=== PATIENT | male | born 1975 | race Caucasian/White ===

== ENCOUNTER 2017-04-24 12:20 | Emergency (ER) | payer BC, OTHER ==
[~2017-04-24] VITALS: Ht 177.8 cm; Wt 97.1 kg
[~2017-04-24 12:20] MED LIST: BUSP-8 PO; ZNTT/150 PO
[2017-04-24 12:29] VITALS: TEMP 36.8; Ht 177.8 cm; Wt 97.1 kg
[2017-04-24 13:05] LABS: HEMATOCRIT 48.2 % (42-52); MEAN CELL VOLUME 81.6 fL (80-100); MEAN CORPUSCULAR HEMOGLOBIN 29.1 pg (25-34); MEAN CORPUSCULAR HGB CONC 35.7 g/dl (32-36); MEAN PLATELET VOLUME 10.4 fL (7.4-10.4); PLATELET COUNT 247 K/uL (130-400); RED BLOOD COUNT 5.91 M/uL (4.7-6.1); WHITE BLOOD COUNT 7.01 K/uL (4.8-10.8)
[2017-04-24] MEDS ORDERED: OMEP20CA9 PO (13:06)
[2017-04-24] MEDS ORDERED: ATV5X PO (13:06)
--- NOTE | 2017-04-24 13:13 | DIAGNOSTIC IMAGING REPORT ---
CHEST ONE VIEW PORTABLE CLINICAL HISTORY: htn dyspnea COMPARISON STUDY: 11/03/2015 FINDINGS: The bones soft tissues and hemidiaphragms are normal. The cardiomediastinal silhouette is normal. The lungs are clear. The pulmonary vasculature is normal. IMPRESSION: Negative chest. The above report was generated using voice recognition software. It may contain grammatical, syntax or spelling errors. Electronically signed by: Ernie Hedrick M.D. 04/24/2017 1:12 PM Dictated Date/Time: 04/24/2017 1:12 PM
[2017-04-24 13:18] LABS: BUN/CREATININE RATIO 14.9 (10-20); CALCIUM 9.4 mg/dl (8.5-10.1); CREATININE 1.2 mg/dl (0.60-1.40); POTASSIUM 3.9 mmol/L (3.5-5.1)
[2017-04-24 13:21] LABS: ALB/GLOB RATIO 1.2 (0.9-2)
[2017-04-24] MEDS ORDERED: LIDOCAINE HCL 2% VISC SOLN 20 ML UDC ONE (13:35)
[2017-04-24] MEDS ORDERED: ALUMINUM/MAGNESIUM SUSP 30 ML UDC ONE (13:35)
[2017-04-24] MEDS ORDERED: LOSARTAN POTASSIUM 25 MG TAB PO STA (13:43)
[2017-04-24] MEDS ORDERED: NURSING VERBAL MED ORDER ONE (13:45)
--- NOTE | 2017-04-24 14:21 | DIAGNOSTIC IMAGING REPORT ---
HEAD WITHOUT CONTRAST (CT) CT DOSE: 537.48 mGy.cm HISTORY: Mental status change ROTH eval for bleed TECHNIQUE: Multiaxial CT images of the head were performed without the use of intravenous contrast. Comparison: None. Findings: The paranasal sinuses and mastoid air cells are clear. The calvarium and skull base are intact. The ventricles and sulci are within normal limits. There is no mass, hematoma, midline shift, or acute infarct. Impression: No acute intracranial abnormality. The above report was generated using voice recognition software. It may contain grammatical, syntax or spelling errors. Electronically signed by: Ernie Hedrick M.D. 04/24/2017 2:20 PM Dictated Date/Time: 04/24/2017 2:19 PM
[2017-04-24] MEDS ORDERED: LOSA1TAB PO (14:32)
[2017-04-24 14:48] VITALS: BP 150/102; PULSE 72; O2SAT 97
--- NOTE | 2017-04-24 17:11 | EMERGENCY ROOM VISIT NOTE ---
History Report prepared by Isidro: Dorothy Avalos Under the Supervision of: Dr. Scooter Tavarez M.D. First contact with patient: 13:36 Chief Complaint: HYPERTENSION Stated Complaint: HIGH BLOOD PRESSURE,HEADACHES History of Present Illness The patient is a 41 year old male who presents to the Emergency Room with complaints of persistent hypertension over the past week. The patient states that every time he goes to the doctor he is found to be hypertensive. He states that he was in to see his PCP this past week and was instructed to buy a blood pressure cuff and monitor it at home. The patient states that over the past several days he has found that his blood pressure is persistently elevated. He additionally associates a headache that is localized to his temples. The patient states that today he was preparing to go to camp for a week and decided to go to [facility] for an evaluation. He states that he was instructed to come to the emergency department for further evaluation. The patient denies any chest pain, vomiting, numbness, or weakness. Source of History: patient Onset: past week Position: other (global) Quality: other (hypertension) Timing: other (persistent) Associated Symptoms: + headache, No chest pain, No vomiting, No weakness, No numbness Review of Systems See HPI for pertinent positives & negatives. A total of 10 systems reviewed and were otherwise negative. Past Medical & Surgical Medical Problems: (1) Anxiety state, unspecified (2) Chronic tonsillitis and adenoiditis Family History FH: Parkinson's disease FH: lupus Social History Smoking Status: Never Smoker Alcohol Use: occasionally Marital Status: Housing Status: lives with family Occupation Status: employed Current/Historical Medications Scheduled Losartan Potassium (Cozaar), 1 TAB PO DAILY Omeprazole (Prilosec), 20 MG PO BID Scheduled PRN Lorazepam (Lorazepam), 0.5 MG PO TID PRN for Anxiety Allergies Coded Allergies: No Known Allergies (Unverified , 04/24/17) Physical Exam Vital Signs Date Time Temp Pulse Resp B/P (MAP) Pulse Ox O2 Delivery O2 Flow Rate FiO2 04/24/17 14:48 72 18 150/102 97 Room Air 04/24/17 13:38 72 18 160/103 97 Room Air 04/24/17 13:15 70 04/24/17 12:29 36.8 86 20 164/112 100 Room Air Physical Exam Constitutional: Vital signs reviewed. Eyes: Pupils are equal round reactive to light. Conjunctiva are noninjected. ENT: Pharynx is clear without erythema or exudate. Mucous membranes are moist. Neck supple without meningeal signs. Respiratory: Clear to auscultation bilaterally. Breath sounds are equal bilaterally. Cardiovascular: Regular rate and rhythm. No rubs or gallops. GI: Soft, nondistended and nontender. Bowel sounds are present. Musculoskeletal: No peripheral edema. No lower extremity tenderness. Integumentary: No cyanosis. Neurological: The patient is awake and alert. Cranial nerves II-XII are intact. Motor is 5 out of 5 all extremities. Sensation is intact to light touch all extremities. Normal speech. No pronator drift. Psychiatric: Normal affect. Medical Decision & Procedures ER Provider Diagnostic Interpretation: Radiology results as stated below per my review and the radiologist's interpretation: CHEST ONE VIEW PORTABLE CLINICAL HISTORY: htn dyspnea COMPARISON STUDY: 11/03/2015 FINDINGS: The bones soft tissues and hemidiaphragms are normal. The cardiomediastinal silhouette is normal. The lungs are clear. The pulmonary vasculature is normal. IMPRESSION: Negative chest. The above report was generated using voice recognition software. It may contain grammatical, syntax or spelling errors. Electronically signed by: Ernie Hedrick M.D. 04/24/2017 1:12 PM Dictated Date/Time: 04/24/2017 1:12 PM HEAD WITHOUT CONTRAST (CT) CT DOSE: 537.48 mGy.cm HISTORY: Mental status change ROTH eval for bleed TECHNIQUE: Multiaxial CT images of the head were performed without the use of intravenous contrast. Comparison: None. Findings: The paranasal sinuses and mastoid air cells are clear. The calvarium and skull base are intact. The ventricles and sulci are within normal limits. There is no mass, hematoma, midline shift, or acute infarct. Impression: No acute intracranial abnormality. The above report was generated using voice recognition software. It may contain grammatical, syntax or spelling errors. Electronically signed by: Ernie Hedrick M.D. 04/24/2017 2:20 PM Dictated Date/Time: 04/24/2017 2:19 PM Laboratory Results 04/24/17 12:55 04/24/17 12:55 Test 04/24/17 12:55 Red Blood Count 5.91 M/uL (4.7-6.1) Mean Corpuscular Volume 81.6 fL (80-100) Mean Corpuscular Hemoglobin 29.1 pg (25-34) Mean Corpuscular Hemoglobin Concent 35.7 g/dl (32-36) RDW Standard Deviation 33.3 fL (36.4-46.3) RDW Coefficient of Variation 11.3 % (11.5-14.5) Mean Platelet Volume 10.4 fL (7.4-10.4) Anion Gap 8.0 mmol/L (3-11) Est Creatinine Clear Calc Drug Dose 95.6 ml/min Estimated GFR () 87.1 Estimated GFR (Non- 75.2 BUN/Creatinine Ratio 14.9 (10-20) Calcium Level 9.4 mg/dl (8.5-10.1) Total Bilirubin 1.6 mg/dl (0.2-1) Aspartate Amino Transf (AST/SGOT) 20 U/L (15-37) Alanine Aminotransferase (ALT/SGPT) 31 U/L (12-78) Alkaline Phosphatase 49 U/L (45-117) Troponin I < 0.015 ng/ml (0-0.045) Total Protein 8.4 gm/dl (6.4-8.2) Albumin 4.6 gm/dl (3.4-5.0) Globulin 3.8 gm/dl (2.5-4.0) Albumin/Globulin Ratio 1.2 (0.9-2) Laboratory results as reviewed by me. Medications Administered Medications (Trade) Dose Ordered Sig/Chris Route Start Time Stop Time Status Last Admin Dose Admin Al Hydroxide/Mg Hydroxide (Maalox Susp) 30 ml STK-MED ONCE .ROUTE 04/24/17 13:35 04/24/17 13:36 DC 04/24/17 13:35 30 ML Lidocaine HCl (Viscous Lidocaine 2% Soln) 20 ml STK-MED ONCE .ROUTE 04/24/17 13:35 04/24/17 13:36 DC 04/24/17 13:35 20 ML Losartan Potassium (coZAAR TAB) 25 mg ONE STAT PO 04/24/17 13:43 04/24/17 13:48 DC 04/24/17 14:16 25 MG ECG Indication: other (hypertension) Rate (beats per minute): 78 Rhythm: normal sinus Findings: no acute ischemic change, no ectopy ED Course 1335: Ordered Lidocaine HCl 20 ml .route, Maalox Susp 30 ml .route. 1338: The patient was evaluated in room A9B. A complete history and physical exam was performed. 1343: Ordered Cozaar Tab 25 mg PO. 1428: I reevaluated the patient and he is doing well. I discussed the test results with him and I discussed the treatment plan. He verbalized complete understanding and agreement. He is ready to go home. Medical Decision This is a 41-year-old male who presents with elevated blood pressures and hypertension. Differential diagnosis includes whitecoat hypertension, essential hypertension, anxiety, migraine headache, intracranial hemorrhage. I did perform a limited focused review of portions of the patient's old chart on the electronic medical record. The patient has had no recent pertinent visits to this hospital. Medication Reconciliation: I attest that I have personally reviewed the patient' s current medication list. Blood Pressure Screening: Patient was found to have an elevated blood pressure and was referred to their primary doctor for recheck and further treatment. I did evaluate the patient as noted above. IV access was established. The patient was placed on a continuous oncology social work. I did personally review the patient's 12-lead EKG and chest x-ray as described above. I did review the patient's blood work as noted in the electronic medical record. I did order a CT of the head. I did review the images myself as well as the radiology report as described above. There is no evidence of intracranial hemorrhage. I did treat the patient with losartan. He did wish to initiate therapy and so he was discharged with a prescription for losartan 25 mg daily. He follow closely with his doctor for further evaluation. I did discuss side effects of the medication with him. Impression Primary Impression: Hypertension Additional Impression: Headache Scribe Attestation The scribe's documentation has been prepared under my direct and personally reviewed by me in its entirety. I confirm that the note above accurately reflects all work, treatment, procedures, and medical decision making performed by me. Departure Information Dispostion Home / Self-Care Prescriptions Losartan Potassium (COZAAR) 25 Mg Tab 1 TAB PO DAILY for 30 Days, #30 TAB 5 Refills Prov: Scooter Tavarez M.D. 04/24/17 Referrals Hardeep Vasquez M.D. (PCP) Forms HOME CARE DOCUMENTATION FORM, IMPORTANT VISIT INFORMATION, WORK / SCHOOL INSTRUCTIONS Patient Instructions ED Hypertension [place], My [facility] Additional Instructions You have been examined and treated today on an emergency basis only. This is not a substitute for, or an effort to provide, complete comprehensive medical care. It is impossible to recognize and treat all injuries or illnesses in a single emergency department visit. It is therefore important that you follow up closely with your physician. Call as soon as possible for an appointment. Return for worsening symptoms or if you develop fever, vomiting, chest pain, shortness of breath, numbness or weakness in your extremities, difficulty with your speech or walking, or any other concerning symptoms. Problem Qualifiers Primary Impression: Hypertension Hypertension type: unspecified Qualified Codes: I10 - Essential (primary) hypertension Additional Impression: Headache Headache type: unspecified Headache chronicity pattern: acute headache Intractability: not intractable Qualified Codes: R51 - Headache
[2017-05-17] MEDS ORDERED: RANI75TA19 PO (14:03)
[2017-05-17] MEDS ORDERED: LOSA25TA18 PO (14:03)
[2017-05-17] MEDS ORDERED: MULT1CHW18 PO (14:04)
== END 2017-04-24 14:59 | disposition home or self-care (01) ==
LOC: C.EDB 12:22 → C.EDA 14:59
DX: I10 Essential (primary) hypertension (principal); R51 Headache; F41.9 Anxiety disorder, unspecified; Z79.899 Other long term (current) drug therapy

== ENCOUNTER → 2017-05-03 | Outpatient (CLI) | payer BC ==
[~2017-05-03] MED LIST changes: +ATV5X PO; -BUSP-8 PO; +LOSA1TAB PO; +LOSA25TA18 PO; +MULT1CHW18 PO; +OMEP20CA9 PO; +RANI75TA19 PO; -ZNTT/150 PO
[2017-05-03 17:42] LABS: BLOOD UREA NITROGEN 18 mg/dl (7-18); BUN/CREATININE RATIO 18.9 (10-20); CALCIUM 9.1 mg/dl (8.5-10.1); CARBON DIOXIDE 27 mmol/L (21-32); CHLORIDE 106 mmol/L (98-107); CREATININE 0.95 mg/dl (0.60-1.40); GLUCOSE 79 mg/dl (70-99); POTASSIUM 3.7 mmol/L (3.5-5.1); SODIUM 140 mmol/L (136-145)
== END | disposition home or self-care (01) ==
LOC: C.LABBFT 12:12
PROVIDERS: ATTEND Physician Assistant Medical
DX: I10 Essential (primary) hypertension (principal)

== ENCOUNTER → 2017-05-18 | Day surgery (SDC) | payer BC ==
[2017-05-17 14:04] VITALS: BMI 29.0
[~2017-05-18] VITALS: Ht 177.8 cm; Wt 93.2 kg
[~2017-05-18] MED LIST changes: +FENTANYL CITRATE INJ 50 MCG/1 ML 2 ML VIAL ONE; +LIDOCAINE HCL 2% 2 ML VIAL (20MG/ML) ONE; -LOSA1TAB PO; +MIDAZOLAM HCL 1 MG/ML 2ML VIAL ONE; +PROPOFOL IV EMULSION 10 MG/ML 20 ML VIAL IV ONE; +SODIUM CHLORIDE 0.9% 500ML 500 ML IV ONE
[2017-05-18 09:52] VITALS: Ht 177.8 cm; Wt 93.2 kg
[2017-05-18 09:54] VITALS: TEMP 37
--- NOTE | 2017-05-18 10:03 | Endo History and Physical ---
History & Physical Date of Service: May 18, 2017. Chief Complaint: GERD WITHOUT ESOPHAGITIS Referring Physician: DR. SHARAN REEDER History of Present Illness 41 yo CM who presents for EGD secondary to GERD. Past Surgical History Hx Cardiac Surgery: No Hx Internal Defibrillator: No Hx Pacemaker: No Hx Abdominal Surgery: No Hx of Implantable Prosthesis: No Hx Post-Op Nausea and Vomiting: No Hx Cancer Surgery: No Hx Thoracic Surgery: No Hx Orthopedic: No Hx Urinary Tract Surgery: No Family History None Social History Smoking Status: Former Smoker Hx Substance Use: Yes (HX MARIJUANA AND COCAINE) Hx Alcohol Use: Yes (12 PACK/WEEK) Allergies Coded Allergies: No Known Allergies (Verified , 05/18/17) Current Medications Reported Home Medications Medications Dose Route/Sig Max Daily Dose Days Date Category Multivitamin Gummies Adul (Multiple Vitamins W/ Minerals) 1 Chw Chw 1 Tab PO BID 05/17/17 Reported Ranitidine Hcl 75 Mg Tab 1 Tab PO DAILY PRN 05/17/17 Reported Cozaar (Losartan Potassium) 25 Mg Tab 25 Mg PO QAM 05/17/17 Reported Lorazepam 0.5 Mg Tab 0.5 Mg PO TID PRN 04/24/17 Reported Prilosec (Omeprazole) 20 Mg Cap 20 Mg PO QPM 04/24/17 Reported Vital Signs Weight (Kilograms): 93.18 Height (Feet): 5 Height (Inches): 10 Date Time Temp Pulse Resp B/P (MAP) Pulse Ox O2 Delivery O2 Flow Rate FiO2 05/18/17 09:54 37.0 77 16 138/86 (103) 98 Room Air Physical Exam General Appearance: WD/WN, no apparent distress Respiratory/Chest: Auscultation: breath sounds normal Cardiovascular: Heart Auscultation: RRR Abdomen: Bowel Sounds: normal Inspection & Palpation: soft, non-distended, no tenderness, guarding & rebound Assessment and Plan Assessment: 41 yo CM who presents for EGD secondary to GERD. Plan: Proceed with EGD.
--- NOTE | 2017-05-18 10:35 | GI REPORT ---
Procedure Date: 05/18/2017 10:04 AM Procedure: Upper GI endoscopy Indications: Gastro-esophageal reflux disease Medicines: Monitored Anesthesia Care Complications: No immediate complications. Estimated Blood Loss: Estimated blood loss: none. Procedure: Pre-Anesthesia Assessment: - Prior to the procedure, a History and Physical was performed, and patient medications and allergies were reviewed. The patient's tolerance of previous anesthesia was also reviewed. The risks and benefits of the procedure and the sedation options and risks were discussed with the patient. All questions were answered, and informed consent was obtained. Prior Anticoagulants: The patient has taken no previous anticoagulant or antiplatelet agents. ASA Grade Assessment: II - A patient with mild systemic disease. After reviewing the risks and benefits, the patient was deemed in satisfactory condition to undergo the procedure. After obtaining informed consent, the endoscope was passed under direct vision. Throughout the procedure, the patient's blood pressure, pulse, and oxygen saturations were monitored continuously. The scope was introduced through the mouth, and advanced to the second part of duodenum. The upper GI endoscopy was accomplished without difficulty. The patient tolerated the procedure well. Findings: The esophagus was normal. A small hiatus hernia was present. Localized mild inflammation characterized by erythema was found in the gastric antrum. Biopsies were taken with a cold forceps for histology. The examined duodenum was normal. Impression: - Normal esophagus. - Small hiatus hernia. - Gastritis. Biopsied. - Normal examined duodenum. Recommendation: - Resume previous diet. - Continue present medications. - Await pathology results. - Return to primary care physician as previously scheduled. Lee Vallejo DO 05/18/2017 10:35:32 AM This report has been signed electronically. Note Initiated On: 05/18/2017 10:04 AM I attest to the content of the Intraoperative Record and orders documented therein, exceptions below
--- NOTE | 2017-05-18 10:41 | Discharge Instructions ---
Endoscopy Patient Instructions Date / Procedure(s) Performed May 18, 2017. EGD Allergy Information Coded Allergies: No Known Allergies (Verified , 05/18/17) Discharge Date / Findings May 18, 2017. Gastritis Hiatal hernia Medication Instructions OK to resume all medications today as prescribed Reported Home Medications Medications Dose Route/Sig Max Daily Dose Days Date Category Multivitamin Gummies Adul (Multiple Vitamins W/ Minerals) 1 Chw Chw 1 Tab PO BID 05/17/17 Reported Ranitidine Hcl 75 Mg Tab 1 Tab PO DAILY PRN 05/17/17 Reported Cozaar (Losartan Potassium) 25 Mg Tab 25 Mg PO QAM 05/17/17 Reported Lorazepam 0.5 Mg Tab 0.5 Mg PO TID PRN 04/24/17 Reported Prilosec (Omeprazole) 20 Mg Cap 20 Mg PO QPM 04/24/17 Reported Provider Instructions Activity Restrictions - No exercising or heavy lifting for 24 hours. - Do not drink alcohol the day of the procedure. - Do not drive a car or operate machinery until the day after the procedure. - Do not make any important decisions or sign important papers in 24 hours after the procedure. Following Day: - Return to full activity which may include returning to work/school. Diet Start your diet with liquids and light foods (jello, soup, juice, toast). Then eat your usual diet if not nauseated. Treatment For Common After Affects For mild abdominal pain, bloating, or excessive gas: - Rest - Eat lightly - Lie on right side Follow-Up Information Follow-up with DR. SHARAN REEDER as scheduled Anesthesia Information What You Should Know You have had a procedure that required some medicine to reduce anxiety and discomfort. This treatment is called moderate sedation. After receiving the treatment, you may be sleepy, but you will be able to breathe on your own. The effects of the treatment may last for several hours. Follow these instructions along with Activity/Diet recommendations noted above: * Do NOT do anything where dizziness or clumsiness would be dangerous. * Rest quietly at home today, then you can be up and about tomorrow. * Have a responsible person stay with you the rest of today. * You may have had an I.V. today. If so, you may take the dressing off later today. Recommendations Call your doctor if: * Trouble breathing * Continuous vomiting for more than 24 hours * Temperature above 101 degrees * Severe abdominal pain or bloating * Pain not relieved by pain medicine ordered * There is increased drainage or redness from any incision * A large amount of rectal bleeding greater than 2-3 tablespoons. (If you had a polyp/s removed or have hemorrhoids, a small amount of blood - from the rectum is to be expected.) * You have any unanswered questions or concerns. IN THE EVENT OF A SERIOUS EMERGENCY, GO TO THE NEAREST EMERGENCY ROOM Your discharge instructions were prepared by provider Lee Vallejo. Patient Instructions Signature Page Charu Tse Patient (or Guardian) Signature/Date: I have read and understand the instructions given to me by my caregivers. Caregiver/RN/Doctor Signature/Date: The above-named patient and/or guardian has received patient instructions on this date. + Original Patient Signature Page (only) stays with chart. Please make copy for patient.
[2017-05-18 10:47] VITALS: BP 110/66; PULSE 73; O2SAT 96
--- NOTE | 2017-05-18 10:52 | Anesthesiology Progress Note ---
Anesthesia Post Op Note Date & Time May 18, 2017 at 10:52 Vital Signs Pain Intensity: 0 Vital Signs Past 12 Hours Date Time Temp Pulse Resp B/P (MAP) Pulse Ox O2 Delivery O2 Flow Rate FiO2 05/18/17 10:47 73 16 110/66 (81) 96 Room Air 05/18/17 10:35 74 16 113/64 (80) 96 Room Air 05/18/17 10:22 67 16 100/47 (64) 95 Room Air 05/18/17 09:54 37.0 77 16 138/86 (103) 98 Room Air Notes Mental Status: alert / awake / arousable, participated in evaluation Pt Amnestic to Procedure: Yes Nausea / Vomiting: adequately controlled Pain: adequately controlled Airway Patency, RR, SpO2: stable & adequate BP & HR: stable & adequate Hydration State: stable & adequate Anesthetic Complications: no major complications apparent
== END | disposition home or self-care (01) ==
LOC: C.GI 09:34
PROVIDERS: ATTEND Internal Medicine
DX: K44.9 Diaphragmatic hernia without obstruction or gangrene (principal); K29.70 Gastritis, unspecified, without bleeding; K21.9 Gastro-esophageal reflux disease without esophagitis; Z87.891 Personal history of nicotine dependence; Z79.899 Other long term (current) drug therapy

== ENCOUNTER → 2017-05-30 | Outpatient (CLI) | payer SELFPAY ==
[~2017-05-30] MED LIST changes: -FENTANYL CITRATE INJ 50 MCG/1 ML 2 ML VIAL ONE; -LIDOCAINE HCL 2% 2 ML VIAL (20MG/ML) ONE; -MIDAZOLAM HCL 1 MG/ML 2ML VIAL ONE; -PROPOFOL IV EMULSION 10 MG/ML 20 ML VIAL IV ONE; -SODIUM CHLORIDE 0.9% 500ML 500 ML IV ONE
== END | disposition home or self-care (01) ==
LOC: C.LAB 07:16
PROVIDERS: ATTEND Nutritionist

== ENCOUNTER 2017-08-04 21:28 | Emergency (ER) | payer BC ==
[~2017-08-04] VITALS: Ht 177.8 cm; Wt 88.2 kg
[2017-08-04 21:34] VITALS: TEMP 36.9; Ht 177.8 cm; Wt 88.2 kg
[2017-08-04] MEDS ORDERED: [UNRECOGNIZED DRUG - OTHER] PO (22:00)
[2017-08-04] MEDS ORDERED: HYDR1POW PO (22:00)
[2017-08-04] MEDS ORDERED: GLYCINE PO (22:00)
[2017-08-04 22:47] VITALS: O2SAT 99
--- NOTE | 2017-08-04 23:02 | DIAGNOSTIC IMAGING REPORT ---
CHEST ONE VIEW PORTABLE CLINICAL HISTORY: Difficult chest pain, headache, palpitations. COMPARISON STUDY: 04/24/2017 FINDINGS: The cardiac and mediastinal contours are normal. There is no evidence of focal pulmonary consolidation. There is no evidence of failure. No pleural effusions are visualized.[ IMPRESSION: No active disease in the chest. Electronically signed by: Jd Garcia M.D. 08/04/2017 11:01 PM Dictated Date/Time: 08/04/2017 11:01 PM
[2017-08-04 23:15] LABS: BASO % 0.7 %; BASO ABS # 0.05 K/uL (0-0.2); COMPLETE YES; EOS % 1.9 %; HEMATOCRIT 41.5 % (42-52); IG% 0.3 %; LYMPH % 43.2 %; LYMPH ABS # 3.19 K/uL (1.2-3.4); MEAN CELL VOLUME 82.7 fL (80-100); MEAN CORPUSCULAR HEMOGLOBIN 30.3 pg (25-34); MEAN CORPUSCULAR HGB CONC 36.6 g/dl (32-36); MONO % 7.9 %; PLATELET COUNT 207 K/uL (130-400); RED BLOOD COUNT 5.02 M/uL (4.7-6.1); WHITE BLOOD COUNT 7.38 K/uL (4.8-10.8)
--- NOTE | 2017-08-04 23:21 | EMERGENCY ROOM VISIT NOTE ---
History Report prepared by Isidro: Katelyn Burks Under the Supervision of: Dr. Jewel Nova M.D. 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 The patient has been having heart palpitations recently. This evening, the heart palpitations turned into an anxiety. He took some lorazepam. He is still having some palpitations. He then developed a headache. He has a history of getting headaches when his blood pressure is high. He has a history of hypertension. He denies any family history of heart problems. He is not diabetic. He does not smoke. He has been having problems with his gallbladder and is scheduled for a HIDA scan tomorrow. 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 Review of Systems See HPI for pertinent positives & negatives. A total of 10 systems reviewed and were otherwise negative. Past Medical & Surgical Medical Problems: (1) Anxiety state, unspecified (2) Chronic tonsillitis and adenoiditis Family History FH: Parkinson's disease FH: lupus Social History Smoking Status: Former Smoker Alcohol Use: occasionally Marital Status: Housing Status: lives with family Occupation Status: employed Current/Historical Medications Scheduled Hydroxytryptophan (5-Htp), 2 CAP PO HS Losartan Potassium (Cozaar), 12.5 MG PO QAM Multiple Vitamins W/ Minerals (Multivitamin Gummies Adul), 1 TAB PO BID [Dopaboost], 2 CAP PO DAILY [Glycine], 1 CAP PO DAILY Scheduled PRN Lorazepam (Lorazepam), 0.5 MG PO TID PRN for Anxiety Allergies Coded Allergies: No Known Allergies (Verified , 08/04/17) Physical Exam Vital Signs Date Time Temp Pulse Resp B/P (MAP) Pulse Ox O2 Delivery O2 Flow Rate FiO2 08/05/17 00:04 57 18 127/95 98 Room Air 08/04/17 22:47 99 Room Air 08/04/17 22:47 60 18 146/99 99 Room Air 08/04/17 22:47 99 Room Air 08/04/17 22:23 68 10/26/17 21:34 36.9 74 18 168/116 100 Room Air Physical Exam GENERAL: Patient is a healthy-appearing well-nourished male HEAD: Normocephalic atraumatic EYES: Ocular movements intact pupils equal and react to light OROPHARYNX mucous membranes are moist no exudates present no erythema or edema present NECK: Supple no nuchal rigidity CHEST: Good equal expansion LUNGS: Clear and equal to auscultation CARDIAC: Normal S1 and S2 ABDOMEN: Soft nontender no guarding BACK: No CVA tenderness EXTREMITIES: No pain upon palpation normal muscle strength in all groups no clubbing cyanosis or edema NEURO: Patient is following commands and answering questions appropriately. Alert and oriented x3 Cranial Nerves 2-12 grossly intact Medical Decision & Procedures ER Provider Diagnostic Interpretation: X-ray results as stated below per interpretation by me and the radiologist: CHEST ONE VIEW PORTABLE CLINICAL HISTORY: Difficult chest pain, headache, palpitations. COMPARISON STUDY: 04/24/2017 FINDINGS: The cardiac and mediastinal contours are normal. There is no evidence of focal pulmonary consolidation. There is no evidence of failure. No pleural effusions are visualized.[ IMPRESSION: No active disease in the chest. Electronically signed by: Jd Garcia M.D. 08/04/2017 11:01 PM Dictated Date/Time: 08/04/2017 11:01 PM Laboratory Results 08/04/17 22:45 Red Blood Count 5.02, Mean Corpuscular Volume 82.7, Mean Corpuscular Hemoglobin 30.3, Mean Corpuscular Hemoglobin Concent 36.6, Mean Platelet Volume 11.0, Neutrophils (%) (Auto) 46.0, Lymphocytes (%) (Auto) 43.2, Monocytes (%) (Auto) 7.9, Eosinophils (%) (Auto) 1.9, Basophils (%) (Auto) 0.7, Neutrophils # (Auto) 3.40, Lymphocytes # (Auto) 3.19, Monocytes # (Auto) 0.58, Eosinophils # (Auto) 0.14, Basophils # (Auto) 0.05 08/04/17 22:45 Test 08/04/17 22:45 White Blood Count 7.38 K/uL (4.8-10.8) Red Blood Count 5.02 M/uL (4.7-6.1) Hemoglobin 15.2 g/dL (14.0-18.0) Hematocrit 41.5 % (42-52) Mean Corpuscular Volume 82.7 fL (80-100) Mean Corpuscular Hemoglobin 30.3 pg (25-34) Mean Corpuscular Hemoglobin Concent 36.6 g/dl (32-36) Platelet Count 207 K/uL (130-400) Mean Platelet Volume 11.0 fL (7.4-10.4) Neutrophils (%) (Auto) 46.0 % Lymphocytes (%) (Auto) 43.2 % Monocytes (%) (Auto) 7.9 % Eosinophils (%) (Auto) 1.9 % Basophils (%) (Auto) 0.7 % Neutrophils # (Auto) 3.40 K/uL (1.4-6.5) Lymphocytes # (Auto) 3.19 K/uL (1.2-3.4) Monocytes # (Auto) 0.58 K/uL (0.11-0.59) Eosinophils # (Auto) 0.14 K/uL (0-0.5) Basophils # (Auto) 0.05 K/uL (0-0.2) RDW Standard Deviation 36.5 fL (36.4-46.3) RDW Coefficient of Variation 12.2 % (11.5-14.5) Immature Granulocyte % (Auto) 0.3 % Immature Granulocyte # (Auto) 0.02 K/uL (0.00-0.02) Anion Gap 6.0 mmol/L (3-11) Est Creatinine Clear Calc Drug Dose 124.8 ml/min Estimated GFR () 124.5 Estimated GFR (Non- 107.5 BUN/Creatinine Ratio 14.6 (10-20) Calcium Level 8.8 mg/dl (8.5-10.1) Total Bilirubin 0.6 mg/dl (0.2-1) Direct Bilirubin 0.1 mg/dl (0-0.2) Aspartate Amino Transf (AST/SGOT) 15 U/L (15-37) Alanine Aminotransferase (ALT/SGPT) 25 U/L (12-78) Alkaline Phosphatase 47 U/L (45-117) Total Creatine Kinase 188 U/L (39-308) Creatine Kinase MB 1.1 ng/ml (0.5-3.6) Creatine Kinase MB Ratio 0.6 (0-3.0) Troponin I < 0.015 ng/ml (0-0.045) Total Protein 7.5 gm/dl (6.4-8.2) Albumin 4.1 gm/dl (3.4-5.0) Lipase 130 U/L (73-393) Labs reviewed by ED physician. ECG Indication: palpitations Rate (beats per minute): 62 Rhythm: normal sinus Findings: no acute ischemic change, no ectopy ED Course 5: Past medical records reviewed. The patient was evaluated in room A3. A complete history and physical examination was performed. 2345: Upon reexamination the patient is resting comfortably. I discussed results and treatment plan with the patient. He verbalizes agreement and understanding. The patient is ready for discharge. Medical Decision Differential diagnosis: Etiologies such as premature contractions, electrolyte abnormality, cardiac dysrhythmia, thyroid dysfunction, pulmonary embolism, infection, gastrointestinal, as well as others were entertained. This is a 41-year-old male who presents emergency department complaining of palpitations. The patient has a normal EKG in the emergency department has normal CK-MB and troponin fraction. He was observed for a total of 2 hours in the emergency department in no time did the patient exhibit any palpitations. I feel he is well enough to be discharged home for follow-up with [facility] cardiology. Patient was in agreement with the treatment plan. Medication Reconcilliation Current Medication List: was personally reviewed by me Blood Pressure Screening Patient's blood pressure: Elevated blood pressure Blood pressure disposition: Referred to PCP Impression Primary Impression: Palpitations Scribe Attestation The scribe's documentation has been prepared under my direction and personally reviewed by me in its entirety. I confirm that the note above accurately reflects all work, treatment, procedures, and medical decision making performed by me. Departure Information Dispostion Home / Self-Care Referrals Lisa Walters D.O. (PCP) Arian Alberto D.O. Forms HOME CARE DOCUMENTATION FORM, IMPORTANT VISIT INFORMATION Patient Instructions ED Palpitations, My [facility] Additional Instructions Follow up with Dr Alberto's office You were found to have an elevated blood pressure today (>120 sytolic or >90 diastolic). Per medicare guidelines, you need to follow up with this blood pressure screening with your Primary Care Physician (PCP). For a new PCP call [phone]. You have been examined and treated today on an emergency basis only. This is not a substitute for, or an effort to provide, complete comprehensive medical care. It is impossible to recognize and treat all injuries or illnesses in a single emergency department visit. It is therefore important that you follow up closely with Dr Walters. Call as soon as possible for an appointment. Thank you for your time and consideration. I look forward to speaking with you again soon. Please don't hesitate to call us if you have any questions.
[2017-08-04 23:32] LABS: ALT/SGPT 25 U/L (12-78); BLOOD UREA NITROGEN 13 mg/dl (7-18); BUN/CREATININE RATIO 14.6 (10-20); CALCIUM 8.8 mg/dl (8.5-10.1); CARBON DIOXIDE 29 mmol/L (21-32); CHLORIDE 107 mmol/L (98-107); CREATININE 0.88 mg/dl (0.60-1.40); GLUCOSE 97 mg/dl (70-99); POTASSIUM 3.6 mmol/L (3.5-5.1); SODIUM 141 mmol/L (136-145)
[2017-08-04 23:37] LABS: ALKALINE PHOSPHATASE 47 U/L (45-117); AST/SGOT 15 U/L (15-37); CKMB/CK RATIO 0.6 (0-3.0)
[2017-08-05 00:04] VITALS: BP 127/95; PULSE 57; O2SAT 98
[2017-08-18] MEDS ORDERED: DIGE1CAP PO (14:48)
[2017-08-18] MEDS ORDERED: [UNRECOGNIZED DRUG - CODE] PO (14:48)
== END 2017-08-05 00:09 | disposition home or self-care (01) ==
LOC: C.EDB 21:30 → C.EDA 08-05 00:09
DX: R00.2 Palpitations (principal); F41.9 Anxiety disorder, unspecified; Z87.891 Personal history of nicotine dependence; Z79.899 Other long term (current) drug therapy

== ENCOUNTER → 2017-08-05 | Outpatient (CLI) | payer BC ==
[~2017-08-05] MED LIST changes: +DIGE1CAP PO; +GLYCINE PO; +HYDR1POW PO; -OMEP20CA9 PO; -RANI75TA19 PO; +SINCALIDE INJ 1.7 MCG in SODIUM CHLORIDE 0.9% 100ML 100 ML IV SCH; +[UNRECOGNIZED DRUG - CODE] PO; +[UNRECOGNIZED DRUG - OTHER] PO
--- NOTE | 2017-08-05 13:16 | DIAGNOSTIC IMAGING REPORT ---
HEPATOBILIARY HIDA IMAGING CLINICAL HISTORY: 41 years-old Male with RUQ PAIN. Acute right upper quadrant abdominal pain TECHNIQUE: Sequential anterior abdominal images were obtained through 60 minutes following the intravenous administration of 5.5 mCi of technetium-99m Choletec. A lateral image was also obtained. COMPARISON: None available FINDINGS: There is prompt, uniform accumulation of the tracer by the liver. There is normal filling of the intrahepatic ducts, common bile duct and normal excretion of the tracer into the duodenum. The gallbladder is not seen with certainty. Delayed 125 minute anterior, lateral and right anterior oblique images of the abdomen were obtained which demonstrates tracer throughout the bowel. 4 hour delayed images were not obtained secondary to the majority of the radiotracer excreted from the biliary tree by this time interval. IMPRESSION: 1. No scintigraphic evidence for common bile duct obstruction. 2. Gallbladder is not seen with certainty. Differential considerations would include acute or chronic cholecystitis within the appropriate clinical setting. The above report was generated using voice recognition software. It may contain grammatical, syntax or spelling errors. Electronically signed by: Thad Gale M.D. 08/05/2017 1:15 PM Dictated Date/Time: 08/05/2017 1:10 PM
== END | disposition home or self-care (01) ==
LOC: C.NUCL 09:52
PROVIDERS: ATTEND Physician Assistant
DX: R10.11 Right upper quadrant pain (principal)

== ENCOUNTER 2017-09-06 09:01 | Day surgery (SDC) | payer BC ==
[2017-08-18 14:48] VITALS: BMI 27.0
[~2017-09-06] VITALS: Ht 177.8 cm; Wt 85.5 kg
[~2017-09-06 09:01] MED LIST changes: +CEFOXITIN IV 2,000 MG in DEXTROSE 5% 50ML 50 ML IV SCH; +LACTATED RINGER'S 1000ML 1,000 ML IV SCH; -SINCALIDE INJ 1.7 MCG in SODIUM CHLORIDE 0.9% 100ML 100 ML IV SCH
[2017-09-06 09:45] VITALS: BP 131/89; PULSE 77; TEMP 36.8; O2SAT 98; Ht 177.8 cm; Wt 85.5 kg
--- NOTE | 2017-09-06 10:34 | History & Physical Bridge Note ---
H&P Re-Evaluation Bridge Note: I have examined the patient, reviewed the History & Physical and in the interval since the performance of the History & Physical I have noted the following changes of clinical significance: No changes noted
[2017-09-06] MEDS ORDERED: LIDOCAINE HCL 2% 2 ML VIAL (20MG/ML) ONE (10:36)
[2017-09-06] MEDS ORDERED: PROPOFOL IV EMULSION 10 MG/ML 20 ML VIAL IV ONE (10:36)
[2017-09-06] MEDS ORDERED: FENTANYL CITRATE INJ 50 MCG/1 ML 2 ML VIAL ONE (10:37)
[2017-09-06] MEDS ORDERED: MIDAZOLAM HCL 1 MG/ML 2ML VIAL ONE (10:37)
[2017-09-06] MEDS ORDERED: GLYCOPYRROLATE INJ 0.2 MG/ML VIAL ONE (10:37)
[2017-09-06] MEDS ORDERED: ONDANSETRON INJ 2 MG/ML 2 ML VIAL ONE (10:37)
[2017-09-06] MEDS ORDERED: NEOSTIGMINE METHYLSULFATE 5 MG/5 ML SYR ONE (10:37)
[2017-09-06] MEDS ORDERED: KETOROLAC TROMETHAMINE 30 MG/ML VIAL IV. PRN (10:45)
[2017-09-06] MEDS ORDERED: ATROPINE SULFATE 0.1 MG/ML 5ML SYR IV PRN (10:45)
[2017-09-06] MEDS ORDERED: ONDANSETRON INJ 2 MG/ML 2 ML VIAL IV PRN ×2 (10:45→13:00)
[2017-09-06] MEDS ORDERED: FENTANYL CITRATE INJ 50 MCG/1 ML 2 ML VIAL IV PRN (10:45)
[2017-09-06] MEDS ORDERED: BUPIVACAINE 0.5 % 5 MG/1 ML MPF 30ML VIAL ONE (10:54)
[2017-09-06] MEDS ORDERED: SODIUM CHLORIDE 0.9% INJ 10 ML VIAL ONE (11:13)
[2017-09-06] MEDS ORDERED: HYDROmorphone INJ 2 MG/ML SYR/VIAL ONE (11:13)
[2017-09-06] MEDS ORDERED: DEXAMETHASONE SOD INJ 4 MG/ML VIAL ONE (11:31)
[2017-09-06] MEDS ORDERED: PHENYLEPHRINE 100MCG/ML 5ML SYR ONE (11:37)
[2017-09-06] MEDS ORDERED: ROCURONIUM BROMIDE 10 MG/ML 5 ML VIAL IV ONE (11:44)
--- NOTE | 2017-09-06 12:39 | [facility] Post Operative Brief Note ---
Immediate Operative Summary Operative Date Sep 06, 2017. Pre-Operative Diagnosis chronic cholecystitis Post-Operative Diagnosis Same as preop Procedure(s) Performed Laparoscopic Cholecystectomy with Cholangiogram Surgeon Dr. Rosenthal Gluer Machine Setup Operator Surgeon(s) Srinivasan Murdock PA-C Estimated Blood Loss 9 ml Findings Window of safety obtained, cholangiogram with patent cystic duct and no evidence of common bile duct obstruction. Cystic duct and artery doubly clipped and divided. Accessory cystic artery clipped and divided. Specimens A. Gall Bladder and Contents Drains none Anesthesia GETA Complication(s) None Disposition Recovery Room / PACU
[2017-09-06] MEDS ORDERED: OXYC-57 PO (12:41)
[2017-09-06] MEDS ORDERED: SODIUM CHLORIDE 0.9% 1000ML 1,000 ML IV SCH (12:46)
--- NOTE | 2017-09-06 12:46 | [facility] Operative Report ---
Operative Report Operative Date Sep 06, 2017. Pre-Operative Diagnosis chronic cholecystitis Post-Operative Diagnosis same Procedure(s) Performed laparoscopic cholecystectomy with intraoperative cholangiogram Surgeon Dr. Rosenthal Pantry Attendant Surgeon(s) Srinivasan Murdock PA-C Estimated Blood Loss 9 ml Findings Window of safety obtained, cholangiogram with patent cystic duct and no evidence of common bile duct obstruction. Cystic duct and artery doubly clipped and divided. Accessory cystic artery clipped and divided. Specimens A. Gall Bladder and Contents Drains none Anesthesia GETA Disposition Recovery Room / PACU Indications 41-year-old male with abdominal pain and HIDA scan that showed nonfilling of the gallbladder, plan for laparoscopic cholecystectomy with intraoperative cholangiogram. The risks of the procedure were discussed, all questions were answered, and the patient agreed to proceed with surgery as planned. Description of Procedure The patient was properly identified, consented, and taken to the operating room where he was placed in the supine position. General endotracheal anesthesia was induced. SCDs and a safety belt were placed. Preoperative antibiotics were administered. The patient's abdomen was prepped and draped in the standard sterile fashion. A surgical timeout was performed and all parties were in agreement that this was the correct patient and procedure to be performed and we continued as planned. A curvilinear, infraumbilical incision was made with electrocautery and deepened down to the fascia with blunt dissection. The base of the umbilicus was grasped with a Adrian and elevated towards the ceiling. An incision was made in the midline fascia with a knife and entry into the peritoneum was confirmed. Stay suture of 0 Vicryl was placed and a Whitmore trocar was inserted. The abdomen was insufflated with carbon dioxide which the patient tolerated without incident. The laparoscope was inserted and no damage from initial trocar placement was noted, no gross abnormalities were noted within the 4 quadrants of the abdomen. A 5 mm port was placed in the subxiphoid position, and two 3 mm ports were placed in the right subcostal position. The patient was placed in reverse Trendelenburg position and rotated towards the left. The dome of the gallbladder was retracted towards the left upper quadrant and the infundibulum was retracted toward the right lower quadrant revealing Calot' s triangle. Peritoneal attachments were taken down with electrocautery and blunt dissection. The cystic duct and artery were circumferentially dissected. A window of safety was obtained showing the cystic duct entering the gallbladder with no aberrant structures noted. The Mills cholangiocatheter was then used to perform an intraoperative cholangiogram which showed a patent cystic duct, no filling defects, and good filling of the duodenum and hepatic radicals with contrast. The cystic duct and artery were doubly clipped and divided. The gallbladder was then lifted off the gallbladder fossa with electrocautery. An accessory cystic artery was identified and doubly clipped and divided. The gallbladder was placed in an Endo Catch bag and removed through the umbilical port site. Bleeding from the liver bed was controlled with electrocautery. The right upper quadrant was irrigated and hemostasis was found to be good. Trochars were removed under direct visualization and the abdomen was allowed to collapse. The umbilical port site fascia was closed with 0 Vicryl suture. The wound was irrigated, and the skin of all ports was closed with 4-0 Monocryl subcuticular sutures. Dermabond was placed over the wounds. The patient was extubated in the operating room and taken to the PACU where he recovered without apparent incident. All sponge, instrument and needle counts were correct at the conclusion of the procedure. The patient tolerated the procedure well. I attest to the content of the Intraoperative Record and any orders documented therein. Any exceptions are noted below.
--- NOTE | 2017-09-06 12:46 | Discharge Instructions ---
Discharge Instructions Date of Service Sep 06, 2017. Visit Reason for Visit: Chronic Cholecystitis Discharge Discharge Diagnosis / Problem: Chronic Cholecystitis Discharge Goals Goal(s): Decrease discomfort, Improve function Activity Recommendations Activity Limitations: as noted below Lifting Limitations: no more than 10 pounds, until after follow-up appointment Exercise/Sports Limitations: until after follow-up appointment Shower/Bathe: tomorrow Driving or Machine Use: resume 1 day after discharge (Do not drive while under the influence of narcotic pain medications.) Anesthesia . Post Anesthesia Instructions: If you have had General Anesthesia or IV Sedation: * Do not drive today. * Resume driving when surgeon permits. * Do not make important decisions or sign legal documents today. * Call surgeon for: 1. Temperature elevations greater than 101 degrees F. 2. Uncontrollable pain. 3. Excessive bleeding. 4. Persistent nausea and vomiting. 5. Medication intolerance (nausea, vomiting or rash). * For nausea and vomiting use only clear liquids such as: tea, soda, bouillon until nausea subsides, then gradually increase diet as tolerated. * If you have any concerns or questions, call your surgeon's office. If physician is unavailable and it is an emergency, call 911 or go to the nearest emergency room. . Instructions / Follow-Up Instructions / Follow-Up You have surgical glue covering your incisions. Please allow this to fall off on its own. You have been given a prescription for percocet for pain. You may alternate this with ibuprofen for better pain relief. Do not use tylenol with the percocet as it already has tylenol in it. Please follow-up with Dr. Rosenthal in the office in 1-2 weeks. Please contact our office at to schedule an appointment if you have not done so already. Please contact our office with any questions or concerns at the number listed above. Diet Recommendations Recommended Home Diet: no limitations, resume previous diet Procedures Procedures Performed: Laparoscopic Cholecystectomy with Cholangiogram Pending Studies Studies pending at discharge: yes List of pending studies: Pathology Medical Emergencies . Who to Call and When: Medical Emergencies: If at any time you feel your situation is an emergency, please call 911 immediately. . Non-Emergent Contact Non-Emergency issues call your: Primary Care Provider, Surgeon Call Non-Emergent contact if: you have a fever, temperature is above 101.5, your pain is not controlled, your pain is worsening, wound has increased drainage, wound has increased redness . . "Provider Documentation" section prepared by Srinivasan Hobson. . [place] Drug Monitoring Program Search Results: patient reviewed within database, no issues identified
[2017-09-06] MEDS ORDERED: OXYCODONE/ACETAMINOPHEN 5-325 TAB PO PRN ×2 (13:00)
[2017-09-06] MEDS ORDERED: IBUPROFEN 600 MG TAB PO PRN (13:00)
--- NOTE | 2017-09-06 13:14 | DIAGNOSTIC IMAGING REPORT ---
CHOLANGIOGRAM O.R. CLINICAL HISTORY: 41 years-old Male presenting with intraoperative cholangiogram. TECHNIQUE: Fluoroscopy was provided for an intraoperative cholangiogram status post cholecystectomy. Contrast was injected through the cystic duct remnant. COMPARISON: HIDA scan from 08/05/2017. FINDINGS: The common bile duct is normal in course and caliber. There are no filling defects seen within the common bile duct to suggest a retained stone. Contrast extends into the small bowel. There is no intrahepatic bile duct dilatation. No abnormal distention of the cystic duct remnant. Amorphous contrast projecting over the region of the gallbladder fossa may relate to peritoneal spillage. Fluoroscopy dosage (mGy): Not available. Fluoroscopy time: 10 seconds. Number of fluoroscopic spot images: 5. IMPRESSION: Fluoroscopy provided for an intraoperative cholangiogram status post cholecystectomy. No filling defects within the common bile duct. Amorphous contrast in the region of the gallbladder fossa may relate to peritoneal spillage. If there is clinical concern for bile leak and/or peritonitis, further evaluation with nuclear medicine HIDA scan could be considered. Electronically signed by: Ryne Barriga M.D. 09/06/2017 1:13 PM Dictated Date/Time: 09/06/2017 1:09 PM
[2017-09-06] MEDS: LABETALOL HCL IV 5 MG/ML 20ML IV PRN ×3 (13:30→13:56)
[2017-09-06 14:23] VITALS: BP 149/84; PULSE 70; TEMP 37.3; O2SAT 96
--- NOTE | 2017-09-06 14:36 | Anesthesiology Progress Note ---
Anesthesia Post Op Note Date & Time Sep 06, 2017 at 14:35 Vital Signs Pain Intensity: 3 Vital Signs Past 12 Hours Date Time Temp Pulse Resp B/P (MAP) Pulse Ox O2 Delivery O2 Flow Rate FiO2 09/06/17 14:15 74 16 148/80 97 Room Air 09/06/17 14:05 60 16 134/81 97 Room Air 09/06/17 13:55 37 68 16 138/97 97 Room Air 09/06/17 13:45 68 16 151/95 97 Room Air 09/06/17 13:35 63 16 143/92 97 Room Air 09/06/17 13:25 63 16 143/91 97 Room Air 09/06/17 13:15 66 14 150/98 97 Room Air 09/06/17 13:05 66 14 149/88 97 Room Air 09/06/17 12:55 62 14 165/100 100 Oxymask 8 09/06/17 12:46 78 16 174/100 100 Oxymask 8 09/06/17 12:39 36.3 75 16 163/96 100 Oxymask 8 09/06/17 09:45 36.8 77 18 131/89 (103) 98 Room Air Notes Mental Status: alert / awake / arousable, participated in evaluation Pt Amnestic to Procedure: Yes Nausea / Vomiting: adequately controlled Pain: adequately controlled Airway Patency, RR, SpO2: stable & adequate BP & HR: stable & adequate Hydration State: stable & adequate Anesthetic Complications: no major complications apparent
[2017-09-06 14:53] VITALS: BP 148/89; PULSE 72; O2SAT 99
[2017-09-06 15:23] VITALS: BP 146/84; PULSE 78; O2SAT 99
== END 2017-09-06 15:42 | disposition home or self-care (01) ==
LOC: C.ACU 09:01
PROVIDERS: ATTEND Surgery
DX: K81.1 Chronic cholecystitis (principal); I10 Essential (primary) hypertension; K21.9 Gastro-esophageal reflux disease without esophagitis; K44.9 Diaphragmatic hernia without obstruction or gangrene

== ENCOUNTER 2024-06-22 10:28 | Observation (INO) ==
--- NOTE | 2024-06-22 10:59 | Emergency Department Note ---
Impression & Plan Exertional chest pain ED Provider Note CHIEF COMPLAINT: Chest pain HISTORY OF PRESENTING ILLNESS: This 48-year-old male patient presents to the emergency department for evaluation of chest pain. The patient states that he was on his morning walk at work today and got dizzy, developed shortness of breath, pain in his chest, and tingling into the left arm. The patient states that the symptoms resolve when he is not active, but return with exertion again. The patient has a history of indigestion, but this feels different. He has been taking Protonix with good control of his reflux symptoms. He has had similar symptoms intermittently with exercise or activity over the past month. He had a stress test and ECHO about 1 year that was unremarkable per patient other than his BP was elevated. He has a history HTN and takes Losartan and Amlodipine and states that his BP has improved, but not well controlled on those medications. No history of high cholesterol. Rare social tobacco use. He denies vaping. The patient had increased ETOH use in the past, but has not had any ETOH in the past 7 weeks because he has been wanting to cut back. He denies any abdominal pain, nausea, or vomiting. Denies cough, fevers, or URI symptoms. Denies any headaches or neurological/stroke like symptoms. He is not on any blood thinners. No known family history of heart problems. The patient denies recent long car or plane rides or recent injury/trauma/surgery. Denies any personal history of blood clots or bleeding disorders. Denies any family history of blood clots or bleeding disorders. Denies any hormonal medication use. Denies any hemoptysis. Denies leg/calf pain or swelling. REVIEW OF SYSTEMS: See HPI for pertinent positives and pertinent negatives. ALLERGIES: Kiwi MEDICATIONS: Losartan, Amlodipine, Pantoprazole PAST MEDICAL HISTORY: HTN, GERD, Fatty and enlarged liver with no cirrhosis on imaging per patient PHYSICAL EXAM: VITALS: Vitals are noted on the nurse's note and reviewed by myself. GENERAL: Non toxic, no acute distress, non-diaphoretic. SKIN: Capillary refill <2 sec. EYES: PERRLA. EOMI. Conjunctivae without injection, sclerae without icterus. NOSE: Patent without discharge. MOUTH: Mucous membranes moist. Uvula midline. Airway patent. NECK: Supple without nuchal rigidity. HEART: Regular rate and rhythm without murmurs gallops or rubs. LUNGS: Clear to auscultation bilaterally without wheezes, rales or rhonchi. No retractions or accessory muscle use. No chest wall tenderness. ABDOMEN: Positive bowel sounds x 4. Normal tympanic percussion. Soft, nontender. No masses or organomegaly. Batista sign negative. No CVA tenderness. No guarding or rebound tenderness. No focal RLQ or LLQ tenderness. MUSCULOSKELETAL: No gross musculoskeletal defects. Bilateral calves are nontender to palpation. No erythema, edema, warmth, or cording of the bilateral lower extremities. Negative Homans' sign. Peripheral pulses 2+ and equal. NEURO: Patient was alert and oriented. No focal neurological deficits. DIFFERENTIAL DIAGNOSIS: Differential diagnosis includes angina, UT, pericarditis, myocarditis, aortic dissection, pleurisy, pneumothorax, PE, pneumonia, pneumomediastinum, esophagitis, esophageal spasm, GERD, perforated esophagus, perforated duodenal/gastric ulcer, pancreatitis, cholecystitis, costochondritis, musculoskeletal, bronchitis, URI, or others. ED COURSE AND MEDICAL DECISION MAKING: MEDICATIONS GIVEN: 1 L normal saline solution bolus. Aspirin 324 mg p.o. chewed. Pepcid 20 mg IV. MONITOR: Continuous environmental monitoring specialist: Order was placed for continuous environmental monitoring specialist. Patient was placed on the environmental monitoring specialist and continuous pulse ox. Patient was noted to be in normal sinus rhythm at an initial rate of 70 bpm per my interpretation. EKG: EKG was interpreted by myself as normal sinus rhythm at 69 bpm with no acute ST or T wave changes and no significant change from his previous EKG per cardiology, but Dr. Ayala concerned for possible changes in the lateral leads. INTERPRETATION OF LABS: I interpreted the labs with full lab results as below in the lab section of this note. Pertinent lab results discussed in the MDM section below. INTERPRETATION OF IMAGING: Imaging studies were interpreted by myself and read by radiology as per the imaging section of this note. Chest x-ray showed no evidence of acute cardiopulmonary etiology. CONSULTATIONS: On-call hospitalist [facility] SUMMARY: I examined the patient. The patient presents to the emergency department for evaluation of chest pain, shortness of breath, and tingling into the left arm that started this morning while he was taking a vigorous walk. The symptoms resolved after he stopped walking. The patient has had intermittent more mild symptoms with exertion over the past month. The patient states that he has no symptoms at rest, but increased symptoms again with exertion. An IV lock was placed and labs were drawn. He was given aspirin 324 mg p.o. chewed. He was given Pepcid 20 mg IV. He was given 1 L normal saline solution bolus. The patient states that he does not have any pain at rest while in the emergency department. However, he did get slight discomfort with getting up to go to the bathroom that resolved again once he laid back in bed. White blood cell count normal at 5.74. Hemoglobin normal at 15. Platelet count normal at 278. Coags were normal. D-dimer was normal. Glucose 106 and total bilirubin 1.4, but CMP otherwise without significant abnormalities. Chest x-ray without acute cardiopulmonary etiology. EKG without evidence of ischemic changes, but possible changes from his previous EKG per Dr. Ayala. High- sensitivity troponin x 2 were normal. The patient does not have evidence of STEMI or acute UT on exam. However, the patient has exertional chest pain which is concerning. Therefore, the patient will require admission for further inpatient evaluation and treatment. I spoke with the on-call hospitalist who agreed to admit the patient for further management. Please refer to their dictation for further details. The patient's care was transferred in stable condition. DIAGNOSIS: Exertional chest pain Past Med/Surg History Problem List (Updated 06/22/24 @ 19:43 by Caroline Small PA-C) Exertional chest pain (Acute) Duodenal ulcer Anxiety (Acute) Anxiety state, unspecified Chest pain (Acute) Chronic tonsillitis and adenoiditis Headache (Acute) Left sided chest pain (Acute) GERD (gastroesophageal reflux disease) RLQ abdominal pain Chronic diarrhea Post-cholecystectomy syndrome Encounter for pre-operative examination COVID-19 (Acute) Medical History History of COVID-19 History of kidney stones GERD (gastroesophageal reflux disease) Anxiety Hypertension Surgical History History of esophagogastroduodenoscopy (EGD) History of lipoma History of vasectomy History of tonsillectomy History of cholecystectomy Family History Grandfather (Paternal) Family history of stomach cancer Other No family history of adverse response to anesthesia Social History Smoking Status: Light tobacco smoker Tobacco Type: Cigarettes Cigarettes Per Day: Social smoker; not daily; Second Hand Exposure: No; Do You Dip or Chew Tobacco: No; Hx Alcohol Use: Yes Alcohol type: beer Hx Substance Use: Yes Last Used Substance: Days (ago) Substance Use Type Other:: Rarely uses Preferred Language: Serbian Communication Ability: Effective Candy [employer]inter Required: No Beliefs That Will Affect Care: None Current Living Situation: Spouse and Family Other Information That Helps Us Care for You: No Feels Safe at Home: Yes Safety Concerns: Feels Safe At This Time Assistive Devices: None Allergies Allergies Allergy/AdvReac Type Severity Reaction Status Date / Time kiwi Allergy Intermediate ITCHY Verified 06/22/24 11:27 THROAT Home Meds Home Medications Medication Instructions Recorded Confirmed lorazepam 0.5 mg tablet 0.5 mg PO BID PRN Anxiety 08/13/21 06/22/24 amlodipine 10 mg tablet 10 mg PO DAILY 06/22/24 06/22/24 losartan 100 mg tablet 100 mg PO DAILY 06/22/24 06/22/24 pantoprazole 40 mg tablet,delayed 40 mg PO DAILY 06/22/24 06/22/24 release Previous Rx's Medication Instructions Recorded epinephrine 0.3 mg/0.3 mL 0.3 mg (0.3 mL) IM Q10M PRN 06/15/21 injection, auto-injector (EpiPen) anaphylaxis #2 ea Results & Data (ED) Vital Signs Vital Signs - 24 hr 06/22/24 10:32 06/22/24 10:32 06/22/24 12:30 Temperature 36.6 C Temperature Source Temporal Artery Scan Pulse Rate 70 Pulse Rate [Apical] 59 L Pulse Rhythm [Apical] Regular Pulse Strength [Apical] Normal Respiratory Rate 18 18 Respiratory Effort / Characteristics SOB on Exertion Non-Labored Spontaneous Respiratory Depth Normal Respiratory Pattern Regular Blood Pressure 145/95 H Blood Pressure [Left Arm] 131/80 Blood Pressure Mean 111 Blood Pressure Mean [Left Arm] 97 Pulse Oximetry 100 97 Oxygen Delivery Method Room Air Room Air Sepsis Recent Fever Within 48 Hours No Sepsis New/Unexplained Change in Mental Status N/A Sepsis Action Taken by Nursing No Action Required 06/22/24 13:09 06/22/24 14:43 Temperature Temperature Source Pulse Rate 81 Pulse Rate [Apical] 58 L Pulse Rhythm [Apical] Regular Pulse Strength [Apical] Normal Respiratory Rate 20 Respiratory Effort / Characteristics Non-Labored Spontaneous Respiratory Depth Normal Respiratory Pattern Regular Blood Pressure Blood Pressure [Left Arm] 130/83 Blood Pressure Mean Blood Pressure Mean [Left Arm] 98 Pulse Oximetry 96 Oxygen Delivery Method Room Air Sepsis Recent Fever Within 48 Hours Sepsis New/Unexplained Change in Mental Status Sepsis Action Taken by Nursing Laboratory Data 06/22/24 10:41 06/22/24 10:41 Lab Results 06/22/24 06/22/24 Range/Units 10:41 12:53 WBC 5.74 (4.8-10.8) K/ul RBC 5.11 (4.70-6.10) M/uL Hgb 15.0 (14.0-18.0) g/dl Hct 42.2 (42.0-52.0) % MCV 82.6 (80.0-100.0) fL MCH 29.4 (25.0-34.0) pg MCHC 35.5 (32.0-36.0) g/dL RDW Std Deviation 33.5 L (36.4-46.3) fL RDW Coeff of Charisma 11.3 L (11.5-14.5) % Plt Count 278 (130-400) K/uL MPV 10.3 (9.4-12.4) fL Immature Gran % (Auto) 0.2 % Neut % (Auto) 43.4 % Lymph % (Auto) 47.0 % Irion % (Auto) 6.8 % Eos % (Auto) 1.7 % Baso % (Auto) 0.9 % Neut # (Auto) 2.49 (1.40-6.50) K/uL Lymph # (Auto) 2.70 (1.20-3.40) K/uL Irion # (Auto) 0.39 (0.11-0.59) K/uL Eos # (Auto) 0.10 (0.00-0.50) K/uL Baso # (Auto) 0.05 (0.00-0.20) K/uL Immature Gran # (Auto) 0.01 (0.01-0.20) K/uL PT 11.0 (9.0-12.0) Seconds INR 1.0 (0.9-1.1) APTT 27 (21-31) Seconds PTT Ratio 1.0 D-Dimer < 190 (0-500) ug/L FEU Sodium 138 (136-145) mmol/L Potassium 3.8 (3.5-5.1) mmol/L Chloride 103 (98-107) mmol/L Carbon Dioxide 27 (21-32) mmol/L Anion Gap 8 (3-11) BUN 13 (6-23) mg/dl Creatinine 1.00 (0.6-1.4) mg/dl Est Cr Clr Drug Dosing 106.7 ml/min Est GFR ( Amer) 103.4 ml/min Est GFR (Non-Af Amer) 89.2 ml/min BUN/Creatinine Ratio 13.0 (10-20) Glucose 106 H (70-99(Fasting)) mg/dl Calcium 9.8 (8.6-10.3) mg/dl Total Bilirubin 1.4 H (0.2-1.0) mg/dl AST 12 L (13-39) U/L ALT 11 (7-52) U/L Alkaline Phosphatase 39 (34-104) U/L Troponin I High Sens < 2.3 < 2.3 (0-20) pg/ml Total Protein 8.1 (6.0-8.3) gm/dl Albumin 5.1 H (3.4-5.0) gm/dl Globulin 3.0 (2.5-4.0) gm/dl Albumin/Globulin Ratio 1.7 (0.9-2) Administered Medications Discontinued Medications Aspirin (Aspirin Chew 324 Mg) 324 mg PO NOW STA Stop: 06/22/24 11:09 Last Admin: 06/22/24 11:20 Dose: 324 mg Documented By: JESS Sodium Chloride (Nss) 1,000 mls @ 999 mls/hr IV .Q1H1M ONE Stop: 06/22/24 12:08 Last Infusion: 06/22/24 12:31 Dose: Infused Documented By: Admin: 06/22/24 11:20 Dose: 999 mls/hr Documented By: JESS Famotidine (Pepcid 20mg Iv Push) 20 mg in 5 mls @ 2.5 mls/min IV NOW STA Stop: 06/22/24 11:09 Last Admin: 06/22/24 11:35 Dose: 2.5 mls/min Documented By: BMK Imaging Data Radiologist's Impression: Chest X-Ray 06/22/24 10:36 XR chest 1V not portable HISTORY: 48 years-old Male Chest pain, nonspecific COMPARISON: 08/13/2021 TECHNIQUE: PA view of the chest FINDINGS: Cardiomediastinal and hilar silhouettes are within normal limits. No pneumothorax, pleural effusion, airspace consolidation or pulmonary edema. Cholecystectomy. Bones appear grossly intact. IMPRESSION: No acute process. ACT 112: Negative or not required by law. The above report was generated using voice recognition software. It may contain grammatical, syntax or spelling errors. Electronically signed by: Jerome Gale M.D. 06/22/2024 12:19 PM Discharge Plan Visit Data Chief Complaint: Chest Pain Stated Complaint: CHEST PAIN WHEN WALKING, L ARM TINGLY, INDIGESTION ED Provider: Fran Ayala ED Midlevel Provider: Caroline Small Discharge Problem: Exertional chest pain Patient Disposition: Admitted As Inpatient Condition: Good Discharge Instructions Interventions: ED Discharge Assessment Last Done: 06/22/24 15:56
[2024-06-22 11:04] LABS: Basophils # (auto) 0.05 K/uL (0.00-0.20); Basophils % (auto) 0.9 %; Eosinophils % (auto) 1.7 %; Hematocrit (blood only) 42.2 % (42.0-52.0); Immature Granulocytes # (auto) 0.01 K/uL (0.01-0.20); Immature Granulocytes % (auto) 0.2 %; Mean Corpuscular Hemoglobin 29.4 pg (25.0-34.0); Mean Corpuscular Hgb Conc 35.5 g/dL (32.0-36.0); Mean Corpuscular Volume 82.6 fL (80.0-100.0); Mean Platelet Volume 10.3 fL (9.4-12.4); Monocytes # (auto) 0.39 K/uL (0.11-0.59); Monocytes % (auto) 6.8 %; Neutrophils # (auto) 2.49 K/uL (1.40-6.50); Neutrophils % (auto) 43.4 %; Platelet Count 278 K/uL (130-400); RDW Coefficient of Variation 11.3 % (11.5-14.5); RDW Standard Deviation 33.5 fL (36.4-46.3); Red Blood Count 5.11 M/uL (4.70-6.10); White Blood Count 5.74 K/ul (4.8-10.8)
[2024-06-22] MEDS: SODIUM CHLORIDE 0.9% 1,000 ML IV ONE (11:20)
[2024-06-22] MEDS: ASPIRIN CHEW 324 MG PO STA (11:20)
[2024-06-22 11:26] LABS: Partial Thromboplastin Time 27 Seconds (21-31)
[2024-06-22 11:31] LABS: Alanine Aminotransferase 11 U/L (7-52); Albumin Globulin Ratio 1.7 (0.9-2); Albumin Level 5.1 gm/dl (3.4-5.0); Alkaline Phosphatase 39 U/L (34-104); Anion Gap 8 (3-11); Aspartate Aminotransferase 12 U/L (13-39); Bilirubin,Total 1.4 mg/dl (0.2-1.0); Blood Urea Nitrogen 13 mg/dl (6-23); Calcium 9.8 mg/dl (8.6-10.3); Carbon Dioxide 27 mmol/L (21-32); Chloride 103 mmol/L (98-107); Creatinine Clr Calc Pharmacy 106.7 ml/min; Est GFR (African American) 103.4 ml/min; Est GFR (Non-African American) 89.2 ml/min; Glucose 106 mg/dl (70-99(Fasting)); Potassium 3.8 mmol/L (3.5-5.1); Sodium 138 mmol/L (136-145); Total Protein 8.1 gm/dl (6.0-8.3)
[2024-06-22 11:34] LABS: Troponin I High Sensitivity < 2.3 pg/ml (0-20)
[2024-06-22] MEDS: FAMOTIDINE 20MG IV PUSH 20 MG/5 ML SYR IV STA (11:35)
[2024-06-22 12:01] LABS: D Dimer < 190 ug/L FEU (0-500)
--- NOTE | 2024-06-22 12:21 | XRay Report ---
XR chest 1V not portable HISTORY: 48 years-old Male Chest pain, nonspecific COMPARISON: 08/13/2021 TECHNIQUE: PA view of the chest FINDINGS: Cardiomediastinal and hilar silhouettes are within normal limits. No pneumothorax, pleural effusion, airspace consolidation or pulmonary edema. Cholecystectomy. Bones appear grossly intact. IMPRESSION: No acute process. ACT 112: Negative or not required by law. The above report was generated using voice recognition software. It may contain grammatical, syntax o r spelling errors. Electronically signed by: Jerome Gale M.D. 06/22/2024 12:19 PM
--- OUTSIDE RECORDS SUMMARY | 2024-06-22 13:02 | External Medical Summary | Summary of Care ---
Author Name Unknown Organization [facility] Address [address] [place] [address] Phone [phone] Care Team Providers Care Machine Design Teacher Name Role Phone Tiffanie Renee DO Primary Care Provider [phone] Reason for Visit * Reason Comments NEW PATIENT Referred by Thelma hendricks or Fatty Liver and Hepatomegaly. Pt reports that he was a heavy drinker in the past. Dr. Renee noted dark circles under his eyes, so she ordered tests. Charu also reports that he has had pain mid right side abd. * Evaluate & Treat - Unlimited Visits (Within 10 days (routine)) - Authorized Specialty Diagnoses / Procedures Referred By Lio cross Referred To Contact Gastroenterology Diagnoses Hepatomegaly Fatty liver Tiffanie Renee DO [address] [facility] [address] Referral ID Status Reason Start Date Expiration Date Visits Requested Visits Authorized [id number] Authorized Specialty Services Required 04/27/[phone] Encounter Details Date Type Department Care Team (Late st Contact Info) Description 05/25/2024 3:40 PM EDT Office Visit Hepatology, [facility] [address] [facility] [place] [address] Constanza Swift MD [address] [facility] [place] [address] Elevated bilirubin*; Fatty liver Allergies Active Allergy Reactions Criticality Noted Date Comments Kiwi Extract Itching 10/20/2020 Itching throat documented as of this encounter (statuses as of 05/25/2024) Medications Medication Sig Dispensed Refills Start Date End Date Status LORazepam 0.5 MG Oral Tablet (Ativan)Indications :AZUCENA (generalized anxiety disorder) Take 1 Tablet by mouth 2 times a day as needed for Anxiety. As needed 30 Tablet 09/14/2021 Active Fish Oil 1000 MG Oral Capsule Active D3 5000 125 MCG (5000 UT) Oral Capsule (Cholecalciferol) Take 1 Capsule by mouth in the morning. Active Magnesium 200 MG Oral Tablet Active B Complex Oral Capsule Active NATURAL SUPPLEMENT Beet Powder Activ e EPINEPHrine 0.3 MG/0.3ML Injection Solution Auto-injector (Autoinjector) Inject into a large muscle as needed for Anaphylaxis (severe allergic reaction). 06/15/2021 Active Pantoprazole Sodium 40 MG Oral Tablet Delayed Release (Protonix)Indicatio ns:Gastroesophageal reflux disease, unspecified whether esophagitis present TAKE 1 TABLET BY MOUTH EVERY DAY IN THE MORNING 90 Tablet 1 11/22/2022 Active valACYclovir HCl 500 MG Oral Tablet (Valtrex)Indication s:Recurrent genital herpes TAKE 1 TABLET BY MOUTH EVERY DAY IN THE MORNING 90 Tablet 1 08/24/2023 Active Losartan Potassium 100 MG Oral Tablet (Cozaar)Indications :HTN, goal below 130/80 Take 1 Tablet by mouth in the morning. 90 Tablet 3 10/18/2023 Active amLODIPine Besylate 10 MG Oral Tablet (Norvasc)Indication s:HTN, goal below 130/80 Take 1 Tablet by mouth in the morning. 90 Tablet 3 02/10/2024 Active documented as of this encounter (statuses as of 05/25/2024) Active Problems Problem Noted Date Diagnosed Date Recurrent genital herpes 11/17/2022 Rib pain 11/17/2022 Obesity, Class I, BMI 30.0-34.9 (see actual BMI) 07/06/2022 Tobacco use disorder 08/25/2021 AZUCENA (generalized anxiety disorder) 08/25/2021 Gastroesophageal reflux disease without esophagi tis 01/09/2018 Hiatal hernia 01/09/2018 HTN, goal below 130/80 07/15/2017 documented as of this encounter (statuses as of 05/25/2024) Resolved Problems Problem Noted Date Diagnosed Date Resolved Date Sun-damaged skin 01/09/2018 07/17/2018 Seborrheic keratosis 01/09/2018 018 Neoplasm of uncertain behavior of skin 01/09/2018 07/17/2018 Palpitations 08/12/2017 08/25/2021 documented as of this encounter (statuses as of 05/25/2024) Immunizations Name Administration Dates Next Due Seasonal Influenza, PF, 6 M & above, IM , (FluLaval or Fluzone) 10/20/2017 10/20/2018 TDAP, Age 7 and older, IM (Adacel) 03/05/2015 documented as of this encounter Social History Tobacco Use Types Packs/Day Years Used Date Smoking Tobacco: Light Smoker Cigarettes Passive Smoke Exposure: Current Smokeless Tobacco: Former Comments:3-4 cigarettes a we ek Alcohol Use Standard Drinks/Week Comments Not Currently 0 (1 standard drink = 0.6 oz pure alcohol) 3-4 nights a week 3 on weekdays and up to 12 on weekends PHQ-2 Answer Date Recorded PHQ-2 Score 0 02/01/2020 Hunger Vital Sign Answer Date Recorded Worried About Running Out of Food in the Last Ye ar Never true 02/01/2020 Ran Out of Food in the Last Year Never true 02/01/2020 Utilities Answer Date Recorded Do you have trouble paying y our heating, water, or electric bill? (Adult - for ages 18 years and over) Not on file 03/27/2024 Is your family able to pay t he heat, water, or electric bill? (Household - for ages 0-17 years) Not on file 03/27/2024 Does your family have access to good internet? (Household - for ages 0-17 years) Not on file 03/27/2024 Social Connections Answer Date Recorded How often do you feel lonely or isolated from those around you? (Adult - for ages 18 years and over) Not on file 03/27/2024 Sex and Gender Information Value Date Recorded Sex Assigned at Not on file Gender Identity Not on file Sexual Orientation Straight 02/01/2020 8: 38 AM EDT Job Start Date Occupation Industry Not on file Not on file Not on file documented as of this encounter Last Filed Vital Signs Vital Sign Reading Time Taken Comments Blood Pressure 129/81 05/25/2024 3:09 PM EDT Pulse 72 05/25/2024 3:09 PM EDT Temperature 36.7 C (98.1 F) 05/25/2024 3:09 PM ED T Respiratory Rate - - Oxygen Saturation - - Inhaled Oxygen Concentration - - Weight 99.5 kg (219 lb 6.4 oz) 05/25/2024 3:09 P M EDT Height 177.8 cm (5' 10") 05/25/2024 3:09 PM EDT Body Mass Index 31.48 05/25/2024 3:09 PM EDT documented in this encounter Progress Notes * Constanza Swift MD - 05/25/2024 3:21 PM EDT Images from the original note were not included. Hepatology [facility]: elevated bilirubin and fup imaging showing fatty liver Referred by Dr. Renee HPI: 48 yo male with a history of htn, generalized anxiety disorder, prior ethanol use, here today for discussion of recent abdominal ultrasound findings of fatty liver. At the age of 41- had reflux and anxiety and ended up getting his surgery removed, symptoms have improved. Used to drink alcohol - has quit since this work-up. Variable over the year - drinking 3-4 drinks aday, two days drinking a more. Quit drinking 3.5 weeks ago - has dropped 15 lbs. 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 As needed 30 Tablet 0 Fish Oil 1000 MG Oral Capsule D3 5000 125 MCG (5000 UT) Oral Capsule (Cholecalciferol) Take 1 Capsule by mouth in the morning. Magnesium 200 MG Oral Tablet B Complex Oral Capsule NATURAL SUPPLEMENT Beet Powder EPINEPHrine 0.3 MG/0.3ML Injection Solution Auto-injector (Autoinjector) Inject into a large muscleas needed for Anaphylaxis (severe allergic reaction). Pantoprazole Sodium 40 MG Oral Tablet Delayed Release (Protonix) TAKE 1 TABLET BY MOUTH EVERY DAY IN THE MORNING 90 Tablet 1 valACYclovir HCl 500 MG Oral Tablet (Valtrex) TAKE 1 TABLET BY MOUTH EVERY DAY IN THE MORNING 90 Tablet 1 Losartan Potassium 100 MG Oral Tablet (Cozaar) Take 1 Tablet by mouth in the morning. 90 Tablet 3 amLODIPine Besylate 10 MG Oral Tablet (Norvasc) Take 1 Tablet by mouth in the morning. 90 Tablet 3 No current facility-administered medications for this visit. Review of patient's allergies indicates: Allergen Reactions Kiwi Extract Itching Itching throat Social History Socioeconomic History Marital status: Spouse name: Not on file Number of children: Not on file Years of education: Not on file Highest education level: Not on file Occupational History Not on file Tobacco Use Smoking status: Light Smoker Types: Cigarettes Passive exposure: Current Smokeless tobacco: Former Tobacco comments: 3-4 cigarettes a week Vaping Use Vaping status: Never Used Substance and Sexual Activity Alcohol use: Not Currently Comment: 3-4 nights a week 3 on weekdays and up to 12 on weekends Drug use: Yes Types: Marijuana Comment: Once in while- not often Sexual activity: Yes Other Topics Concern Not on file Social History Narrative Not on file Social Determinants of Health Financial Resource Strain: Not on file Food Insecurity: No Food Insecurity (02/01/2020) Hunger Vital Sign Worried About Running Out of Food in the Last Year: Never true Ran Out of Food in the Last Year: Never true Transportation Needs: Not on file Social Connections: Unknown (03/27/2024) Social Connections How often do you feel lonely or isolated from those around you? (Adult - for ages 18 years and over): Not on file Housing Stability: Not on file Family History Problem Relation Name Age of Onset Fibromyalgia Mother GI problems Daughter Parkinsonism Grandmother (Maternal) passed at 72 Parkinsonism Grandfather (Maternal) passed at 82 Stomach cancer Grandfather (Paternal) passed at 60 ROS: Constitutional: No report of fever, chills, night sweats. There have been no non-intentional weightchanges. Eyes: No recent changes in visual acuity or blurring of vision. ENT: No change in auditory acuity, sense of smell or taste. CV: No chest pain, palpitations, dyspnea on exertion. Respiratory: No wheezing, cough, sputum production. : No dysuria, polyuria, change in urinary frequency. GI: Per HPI, otherwise negative. Psychiatric: No chronic changes in mood, affect or sensorium. Musculoskeletal: No myalgias, arthralgias, or joint pains. Neurological: No change in gait, change in maintenance of balance, neurologic injuries. Physical Exam Constitutional: BP 129/81 | Pulse 72 | Temp 36.7 C (98.1 F) | Ht 1.778 m (5' 10") | Wt 99.5 kg (219 lb 6.4 oz) | BMI 31.48 kg/m | BSA 2.22 m Well developed, well nourished male in no apparent distress. Eyes: Conjunctivae and sclerae are clear and non-icteric. Pupils are equally round and reactive to light, extra-ocular movements intact. ENT: Nares are patent and without discharge. Oropharynx is clear and without erythema or exudates. Buccal mucosa is moist. Neck: Supple; there is no adenopathy. No supraclavicular adenopathy is noted. CV: Heart is regular without murmur, rub or remedios. Pulm: Clear to percussion and auscultation. GI: Abdomen is soft, non-tender, with normo-active bowel sounds in all four quadrants. No hepatosplenomegaly is appreciated. No masses are palpated. No guarding or rebound is noted. Psychiatric: The patient is alert and oriented in all four spheres. Mood is euthymic. Affect is appropriate for the situation. Skin: No rashes were noted. Musculoskeletal: Gait is normal. Patient is able to transfer from sitting position to exam table without assistance. Abdominal ultrasound: 2019 Liver normal Abdominal ultrasound 2023: Fatty liver, enlarged liver 04/19/14: 4 mo ago BUN 6 - 20 mg/dL 15 Creatinine 0.6 - 1.2 mg/dL 1.0 Estimated Glomerular Filtration Rate >=60 mL/min 89 Comment: eGFR is calculated based on the CKD-EPI 2020 equation Sodium 135 - 146 mmol/L 136 Potassium 3.5 - 5.1 mmol/L 4.3 Chloride 98 - 107 mmol/L 99 CO2 22 - 32 mmol/L 24 Anion Gap 7 - 15 mmol/L 13 Glucose 70 - 120 mg/dL 109 Albumin 3.8 - 5.0 g/dL 4.8 AST 10 - 50 U/L 19 Alkaline Phosphatase 35 - 130 U/L 45 Bilirubin, Total <=1.2 mg/dL 1.3 High Calcium 8.4 - 10.2 mg/dL 10.4 High Protein 6.0 - 8.3 g/dL 7.9 ALT 10 - 50 U/L 22 Prior egd in 2021 normal esophagus, stomach, duodenum A/P: Fatty liver - with normal lft's and normal fib-4 , we spoke of what this, ideally avoid ethanol, [place] of safe thresholds for tylenol - not to go over 2000 mg in a 24 hour period, will obtain a fibroscan at [facility] assess for fibrosis, we spoke of the purpose of a liver biopsy and what that det ermines/methods to do it including an eus guided liver biopsy,, will plan to trend lft's in the fall and see him back in about 6 months Elevated bilirubin - fractionation- likely per history it is Dusty's 6 month hep fup. Constanza Swift MD documented in this encounter Plan of Treatment Upcoming Encounters Date Type Department Care Team (Late st Contact Info) Description 06/04/2024 3:30 PM EDT Nurse Only Gastroenterology, [facility] [place] [address] Nurse Aric Gastro [facility] [address] [facility] [address] [place] [address] 08/14/2024 7:30 AM EST Office Visit Cardiology, [facility] [address] [facility] [address] Tatiana Springer CRNP [address] [facility] [place] [id number] 12/06/2024 4:00 PM EST Office Visit Hepatology, [facility] 132 [facility] [place] [address] Constanza Swift MD [facility] [place] [address] Scheduled Orders Name Type Priority Associated Diagnoses Orde r Schedule BILIRUBIN, DIRECT Lab Routine Elevated bilirubin Expected: 05/25/2024, Expires: 05/25/2025 BILIRUBIN, TOTAL Lab Routine Elevated bilirubin Expected: 05/25/2024, Expires: 05/25/2025 CBC Lab Routine Fatty liver Expected: 05/25/2024, Expires: 05/25/2025 COMPREHENSIVE METABOLIC PANEL Lab Routine Fatty liver Expected: 05/25/2024, Expires: 05/25/2025 PT INR Lab Routine Fatty liver Expected: 05/25/2024, Expires: 05/25/2025 LIVER ELASTOGRAPHY W/O IMAGING Procedures Routine Fatty liver Expected: 05/25/2024, Expires: 11/25/2024 Health Maintenance Due Date Last Done Comments Pneumococcal Vaccine: Pediatrics (0 to 5 Years) and At-Risk Patients (6 to 64 Years) (1 of 2 - PCV) 1982 HIV Screening 12/15/1991 Hepatitis C Screening 1994 Hepatitis B Vaccine (1 of 3 - 19+ 3-dose series) 12/15/1995 Depression Screening 01/31/2021 02/01/2020 Cologuard 2021 Fecal Occult Blood Test 2021 Sigmoidoscopy 2021 COVID-19 Vaccine (1 - season) 2023 Influenza Vaccine (FLU shot) (#1) 2024 07/20/2018 (Declined), 10/20/2017 DTaP,Tdap,and Td Vaccines (2 - Td or Tdap) 03/05/2025 03/05/2015 GFR 04/19/2025 04/19/2024, 01/08, 10/25/2023, Additional history exists Albumin/Creatinine Ratio 04/19/2027 04/19/2024, 07/10 Diabetes Screening 04/19/2027 04/19/2024, 0 01/24/2024, 01/24/2024, Additional history exists Lipid Panel 11/26/2027 11/26/2022, 07/11, 02/19/2015 Colonoscopy 05/08/2031 05/08/2021 Colorectal Cancer Screening 05/08/2031 HPV (Gardasil) Vaccine Aged Out No lo nger eligible based on patient's age to complete this topic MENINGOCOCCAL (MENACTRA/MENVEO) Aged Out No longer eligible based on patient's age to complete this topic documented as of this encounter Medical Devices Not on filedocumented as of this encounter Visit Diagnoses Diagnosis Elevated bilirubin- Primary Jaundice, unspecified, not of Fatty liver Other chronic nonalcoholic liver disease documented in this encounter Advance Directives * Full Code (Latest Code Status on File) Date Activated Date Inactivated Comments 12/22/2018 10:51 AM 12/22/2018 3:39 PM This order reflects the patients wishes and were consensually agreed upon. Question Answer Comments Discussion of Advance Directives occurred with: Patient Does the patient have a Living Will? No Does the patient have Health Care Power of Attor allan? No Care Teams Machine Design Teacher Relationship Specialty Start Date End Date Tiffanie Renee DO [address] [place] [address] PCP - General Family Medicine 02/10/24 documented as of this encounter
--- OUTSIDE RECORDS SUMMARY | 2024-06-22 13:02 | External Medical Summary | Summary of Care ---
Author Name Unknown Organization [facility] Address [address] [place] [address] Phone [phone] Care Team Providers Care Fisher Trawl Line Name Role Phone Memo Knottnabeel Sheehan DO Primary Care Provider [phone] Reason for Visit * Reason Comments Office Procedure Fibroscan Encounter Details Date Type Department Care Team ([facility] st Contact Info) Description 06/04/2024 3:30 PM EDT Nurse Only Gastroenterology, Aric Pfeiffer [address] [place] [phone] [place], Nurse Gastro [facility] [address] [address] Office Procedure (Fibroscan) Allergies Active Allergy Reactions Criticality Noted Date Comments Kiwi Extract Itching 10/20/2020 Itching throat documented as of this encounter (statuses as of 06/06/2024) Medications Medication Sig Dispensed Refills Start Date [...] as of this encounter (statuses as of 06/06/2024) Active Problems Problem Noted Date Diagnosed Date Recurrent genital herpes 11/17/2022 Rib pain 11/17/2022 Obesity, Class I, BMI 30.0-34.9 (see actual BMI) 07/06/2022 Tobacco use disorder 08/25/2021 AZUCENA (generalized anxiety disorder) 08/25/2021 Gastroesophageal reflux disease without esophagi tis 01/09/2018 Hiatal hernia 01/09/2018 HTN, goal below 130/80 07/15/2017 documented as of this encounter (statuses as of 06/06/2024) Resolved Problems Problem Noted Date Diagnosed Date Resolved Date Sun-damaged skin 01/09/2018 07/17/2018 Seborrheic keratosis 01/09/2018 018 Neoplasm of uncertain behavior of skin 01/09/2018 07/17/2018 Palpitations 08/12/2017 08/25/2021 documented as of this encounter (statuses as of 06/06/2024) Immunizations Name Administration Dates Next Due Seasonal [...] Sign Reading Time Taken Comments Blood Pressure 146/83 06/04/2024 3:19 PM EDT Pulse 71 06/04/2024 3:19 PM EDT Temperature 36.5 C (97.7 F) 06/04/2024 3:19 PM ED T Respiratory Rate 18 06/04/2024 3:19 PM EDT Oxygen Saturation - - Inhaled Oxygen Concentration - - Weight 99.8 kg (220 lb) 06/04/2024 3:19 PM EDT Height - - Body Mass Index 31.57 05/25/2024 3:09 PM EDT documented in this encounter Progress Notes * Viviana Petty RN - 06/04/2024 3:49 PM EDT Orlin Corbett Department of Gastroenterology & Hepatology Fibroscan/Vibration Controlled Transient Elastography (VCTE) Procedure Report Date: 06/04/2024 Patient: Charu Tse Referring Provider: Tiffanie Knott DO Interpreting Provider: Dr Swift Indication: Fatty Liver NPO 3-Hours: Yes Probe: M Procedure: After providing oral explanation of the procedure to the patient, patient was placed in a supine position with right arm extended over the head to allow optimal exposure of the right lateral abdomen. Ultrasound location was identified by locating the terminus of the xiphoid process and finding intercostal spacing located midline and lateral to this point. 50 Hz Shear Wave pulses were applied and the resulting Shear Wave and Propagation Speed detected with 3.5 MHz ultrasonic signal, using the FibroScan probe. Skin to liver capsule distance and liver parenchyma were accessed during the entire examination using the FibroScan probe. Eleven Shear wave impulses were produced; individual measurements of each Shear Wave were calculated. Patient tolerated procedure well. Findings: Results for orders placed or performed in visit on 06/04/24 LIVER ELASTOGRAPHY W/O IMAGING Result Value Ref Range Median Shear Wave Speed 1.42 meters/second Median Liver Stiffness 6.1 kilopascal (kPa) IQR/med 20 Range < 30% Fibrosis Staging CAP SCORE 281 dB/m The Interquartile Range to Median ration (IQR/med) for all measurements was 20% , indicating a goodquality study was performed. (Acceptable range of IQR/med less than 30%) Interpretation: Table 1. Non fibrotic liver (F0-F1) Signature: MD Orlin Amaya References: Krista N, Luh Hinds. (2014) Utilization of FibroScan in Clinical Practice. Curr Gastroenterol Rep. DOI 10.1007/l48260-093-4422-1 Table 1 Recommended values for different stage of fibrosis Disease F0-F1 (kPA) F2 (kPA) F3 (kPA) F4 (kPA) Hepatitis B < 6.0 > 6.0 > 9.0 >12.0 Hepatitis C < 7.0 > 7.0 > 9.5 > 12.0 HCV-HIV coinfection < 7.0 < 10.0 > 11.0 >14.0 Cholestatic liver disease < 7.0 > 7.5 > 10.0 > 17.0 NAFLD/ZHU < 7.0 > 7.5 < 10.0 > 14.0 Thank you for referring your patient for Fibroscan. Please do not hesitate to contact us for further information. documented in this encounter Nursing Notes * Viivana Petty, RN - 06/04/2024 3:18 PM EDT Chief Complaint Patient presents with Office Procedure Fibroscan Pt NPO for 3 hours documented in this encounter Plan of Treatment Upcoming Encounters Date Type Department Care Team (Late st Contact Info) Description 12/06/2024 4:00 PM EST Office Visit Hepatology, [facility] [address] [facility] [place] [address] Constanza Swift MD [address] [place] [address] Pending Results Name Type Priority Associated Diagnoses Date /Time LIVER ELASTOGRAPHY W/O IMAGING Procedures Routine Fatty liver 06/04/2024 3:40 PM EDT Health Maintenance Due Date Last Done Comments Pneumococcal Vaccine: Pediatrics (0 to 5 Years) and At-Risk Patients (6 to 64 Years) (1 of 2 - PCV) 1982 HIV Screening 12/15/1991 Hepatitis C Screening 1994 Hepatitis B Vaccine (1 of 3 - 19+ 3-dose series) 12/15/1995 Depression Screening 01/31/2021 02/01/2020 Cologuard 2021 Fecal Occult Blood Test 2021 Sigmoidoscopy 2021 COVID-19 Vaccine ( - season) 2023 Influenza Vaccine (FLU shot) (#1) 2024 07/20/2018 (Declined), 10/20/2017 DTap/Tdap Vaccines (2 - Td or Tdap) 03/05/2025 [...] Not on filedocumented as of this encounter Procedures Procedure Name Priority Date/Time Associated Diagnosis Comments LIVER ELASTOGRAPHY W/O IMAGING Routine 06/04/2024 3:40 PM EDT Fatty liver documented in this encounter Visit Diagnoses Diagnosis Fatty liver- Primary Other chronic nonalcoholic liver disease documented in [...] Power of Attor allan? No Care Teams Fisher Trawl Line Relationship Specialty Start Date End Date Tiffanie Knott DO [address] [place] [address] PCP - General Family Medicine 02/10/24 documented as of this encounter
--- OUTSIDE RECORDS SUMMARY | 2024-06-22 13:02 | External Medical Summary | Summary of Care ---
Author Name Unknown Organization [facility] Address [address] [place] [address] Phone [phone] Care Team Providers Care Track Oiler Name Role Phone Memo Knottnabeel Sheehan DO Primary Care Provider [phone] Reason for Visit * Reason Comments Office Procedure Fibroscan Encounter Details Date Type Department Care Team ([facility] st Contact Info) Description 06/04/2024 3:30 PM EDT Nurse Only Gastroenterology, Aric Pfeiffer [address] [place] [address] [phone] [place], Nurse [facility] [address] [address] Office Procedure (Fibroscan) Allergies Active Allergy Reactions Criticality Noted Date Comments Kiwi Extract Itching 10/20/2020 Itching throat documented as of this encounter (statuses as of 06/05/2024) Medications Medication Sig Dispensed Refills Start Date [...] as of this encounter (statuses as of 06/05/2024) Active Problems Problem Noted Date Diagnosed Date Recurrent genital herpes 11/17/2022 Rib pain 11/17/2022 Obesity, Class I, BMI 30.0-34.9 (see actual BMI) 07/06/2022 Tobacco use disorder 08/25/2021 AZUCENA (generalized anxiety disorder) 08/25/2021 Gastroesophageal reflux disease without esophagi tis 01/09/2018 Hiatal hernia 01/09/2018 HTN, goal below 130/80 07/15/2017 documented as of this encounter (statuses as of 06/05/2024) Resolved Problems Problem Noted Date Diagnosed Date Resolved Date Sun-damaged skin 01/09/2018 07/17/2018 Seborrheic keratosis 01/09/2018 018 Neoplasm of uncertain behavior of skin 01/09/2018 07/17/2018 Palpitations 08/12/2017 08/25/2021 documented as of this encounter (statuses as of 06/05/2024) Immunizations Name Administration Dates Next Due Seasonal [...] in Clinical Practice. Curr Gastroenterol Rep. DOI 10.1007/[id number] Table 1 Recommended values for different stage [...] documented in this encounter Nursing Notes * Viviana Petty, RN - 06/04/2024 3:18 PM EDT Chief Complaint Patient presents with Office Procedure Fibroscan Pt NPO for 3 hours documented in this encounter Plan of Treatment Upcoming Encounters Date Type Department Care Team (Late st Contact Info) Description 12/06/2024 4:00 PM EST Office Visit Hepatology, [facility] [address] [facility] [place] [id number] Constanza Swift MD [address] [...] Power of Attor allan? No Care Teams Track Oiler Relationship Specialty Start Date End Date Tiffanie Knott DO [address] [id number] PCP - General Family Medicine 02/10/24 documented as of this encounter
--- NOTE | 2024-06-22 14:03 | Electrocardiogram Report ---
Test Reason : Blood Pressure : */* mmHG Vent. Rate : 69 BPM Atrial Rate : 69 BPM P-R Int : 132 ms QRS Dur : 96 ms QT Int : 400 ms P-R-T Axes : 78 65 70 degrees QTcB Int : 428 ms Normal sinus rhythm Normal ECG When compared with ECG of 13-Aug-2021 14:48, No significant change was found Confirmed by Fran Golden ([id number]) on 06/22/2024 2:03:35 PM Referred By: Confirmed By: Fran Golden
--- NOTE | 2024-06-22 15:02 | History & Physical Report ---
<Statement entered by Geo Carson MD - 06/22/24 16:17> Attending Addendum: Case reviewed with the advanced practitioner. I have personally performed a history and physical examination on the patient. I have reviewed the advanced practitioner's documentation on the date of service referenced in note, and I agree with, and take responsibility for the plan of care. Acute on chronic exertional cp. Ddx includes primary cardiac etiology but w/u 6 months ago, also GERD, anxiety. Will have cardio see him. Further plan based on their evaluation. Date of Service June 22, 2024 Assessment & Plan (1) Chest pain: Plan: Patient is 48 year old male with PMH HTN, GERD, anxiety presented to ER with c/o exertional CP today that resolved with rest. Denies any recurrent CP or SOB today. In ER vitals stable. Negative troponin x 2 Prior cardiology workup for exertional CP with 01/01/24 stress echo negative for inducible ischemia EKG: sinus rhythm, T wave inversion V1 which is new compared to EKG on 08/13/21 per my interpretation DDx: angina, reflux. R/O ACS. Risk factors: HTN Monitor Vitals Repeat EKG in am Will trend troponin Echo Lipid panel in am to consider adding statin In ER given aspirin 324mg Start aspirin Continue home amlodipine, losartan, Protonix Cardiology consult CBC, CMP in am (2) GERD (gastroesophageal reflux disease): Plan: Continue protonix (3) Anxiety: Plan: Reports anxiety has been more controlled recently Not on prescription meds. Has lorazepam to use prn but hasn't needed DVT Prophylaxis SCDs Admit med/tele Full Code as per discussion with pt Follows with Dr Renee for routine care Pt was seen and care coordinated with Dr Carson. See addendum I spent a total of 75 minutes reviewing notes, outpatient records, labs, medication, coordinating, documenting and providing care for this patient excluding time spent in the performance of separately billed services. History of Present Illness Chief Complaint: CP Primary Care Provider: Tiffanie Renee DO Patient is 48 year old male with PMH HTN, GERD, anxiety presented to ER with c/o CP today. Patient states today was walking briskly and about 1/2 mile in to the walk developed chest pain described as tightness and discomfort. He thought maybe his left arm was a little tingly as well and also reports had indigestion and some nausea. Denies SOB, dizziness, palpitations. He finished walk back to his office and sat down and symptoms continued so came to ER for evaluation. He reports symptoms resolved prior to ER evaluation and denies any recurrence. States one month ago was walking and had chest pain. States after riding e-bike he feels dizzy but denies exertional SOB or CP while bike riding. He reports this has been occurring for months and states has been seen by cardiology for his symptoms. Had followed up with cardiology, Dr. Alberto for exertional chest pain. Had exercise stress echo which was negative for inducible ischemia, however had noted hypertensive during stress test and carvedilol was started. Per chart review last seen in office 02/10/2024 and patient voiced concerns with carvedilol and his alcohol use, so carvedilol was discontinued and amlodipine was increased to 10 mg daily and losartan 100 mg daily was continued. Patient states has not consumed alcohol for the past 7 weeks. Denies fever/chills, diaphoresis, V/D/C, ROTH, dizziness, syncope, vision changes, neck pain, orthopnea, palpitations, cough, sore throat, rhinorrhea, abdominal pain, extremity weakness, extremity edema, rashes, urinary symptoms. Allergies Allergy/AdvReac Type Severity Reaction Status Date / Time kiwi Allergy Intermediate ITCHY Verified 06/22/24 11:27 THROAT Home Medications Medication Instructions Recorded Confirmed Type epinephrine 0.3 mg/0.3 mL 0.3 mg (0.3 mL) IM Q10M PRN 06/15/21 06/22/24 Rx injection, auto-injector (EpiPen) anaphylaxis #2 ea lorazepam 0.5 mg tablet 0.5 mg PO BID PRN Anxiety 08/13/21 06/22/24 History amlodipine 10 mg tablet 10 mg PO DAILY 06/22/24 06/22/24 History losartan 100 mg tablet 100 mg PO DAILY 06/22/24 06/22/24 History pantoprazole 40 mg tablet,delayed 40 mg PO DAILY 06/22/24 06/22/24 History release Past Med/Surg History Problem List Duodenal ulcer Anxiety (Acute) Anxiety state, unspecified Chest pain (Acute) Chronic tonsillitis and adenoiditis Headache (Acute) Left sided chest pain (Acute) GERD (gastroesophageal reflux disease) RLQ abdominal pain Chronic diarrhea Post-cholecystectomy syndrome Encounter for pre-operative examination COVID-19 (Acute) Medical History History of COVID-19 History of kidney stones GERD (gastroesophageal reflux disease) Anxiety Hypertension Surgical History History of esophagogastroduodenoscopy (EGD) History of lipoma History of vasectomy History of tonsillectomy History of cholecystectomy Family History Grandfather (Paternal) Family history of stomach cancer Other No family history of adverse response to anesthesia Social History Smoking Status: Current some day smoker Tobacco Type: Cigarettes Cigarettes Per Day: varies weekly sometimes 5-7 a week; Second Hand Exposure: No; Do You Dip or Chew Tobacco: No; Hx Alcohol Use: Yes (Quit drinking in 2023) Alcohol type: beer Hx Substance Use: Yes (smokes marijuana intermittently) Preferred Language: Yi Communication Ability: Effective Shift 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 Required: No Beliefs That Will Affect Care: None Current Living Situation: Spouse and Family Feels Safe at Home: Yes Assistive Devices: None Review of Systems Review of Systems: All systems reviewed & are unremarkable except as noted in HPI & below Physical Exam Physical Exam: General: no distress, WDWN Head: normocephalic, atraumatic Eyes: conjunctiva non-injected, anicteric ENT: normal inspection external ears, nose, mucous membranes moist Neck: supple, trachea midline Lungs: clear, no respiratory distress, no wheezing/rhonchi/rales CV: RRR, no murmur, no pretibial edema, no chest wall tenderness to palpation Abd: normal BS, soft, non-tender Ext: no cyanosis, no calf tenderness Neuro: A&O x 3, no focal deficits noted, normal affect Skin: warm, dry Results & Data Results & Data Vital Signs (Past 12 Hours) Vital Signs Temp Pulse Pulse Resp BP BP Pulse Ox 06/22/24 14:43 58 L 20 130/83 96 06/22/24 13:09 81 06/22/24 12:30 59 L 18 131/80 97 06/22/24 10:32 36.6 C 70 18 145/95 H 100 O2 Del Method 06/22/24 14:43 Room Air 06/22/24 13:09 06/22/24 12:30 Room Air 06/22/24 10:32 Room Air Laboratory Results Short CBC 06/22/24 Range/Units 10:41 WBC 5.74 (4.8-10.8) K/ul Hgb 15.0 (14.0-18.0) g/dl Hct 42.2 (42.0-52.0) % Plt Count 278 (130-400) K/uL BMP 06/22/24 10:41 Sodium 138 Potassium 3.8 Chloride 103 Carbon Dioxide 27 BUN 13 Creatinine 1.00 Glucose 106 H Calcium 9.8 Liver Function 06/22/24 Range/Units 10:41 Total Bilirubin 1.4 H (0.2-1.0) mg/dl AST 12 L (13-39) U/L ALT 11 (7-52) U/L Alkaline Phosphatase 39 (34-104) U/L Albumin 5.1 H (3.4-5.0) gm/dl Diagnostic Findings Chest X-Ray 06/22/24 10:36 XR chest 1V not portable HISTORY: 48 years-old Male Chest pain, nonspecific COMPARISON: 08/13/2021 TECHNIQUE: PA view of the chest FINDINGS: Cardiomediastinal and hilar silhouettes are within normal limits. No pneumothorax, pleural effusion, airspace consolidation or pulmonary edema. Cholecystectomy. Bones appear grossly intact. IMPRESSION: No acute process. ACT 112: Negative or not required by law. The above report was generated using voice recognition software. It may contain grammatical, syntax or spelling errors. Electronically signed by: Jerome Gale M.D. 06/22/2024 12:19 PM
[2024-06-22] MEDS ORDERED: ACETAMINOPHEN 325 MG TAB PO PRN (16:35)
[2024-06-22] MEDS ORDERED: POLYETHYLENE (MIRALAX) 17 GM PACK PO PRN (16:35)
[2024-06-22] MEDS ORDERED: ONDANSETRON INJ 2 MG/ML 2 ML VIAL IV PRN (16:35)
[2024-06-23 06:51] LABS: Hematocrit (blood only) 39.1 % (42.0-52.0); Hemoglobin 13.8 g/dl (14.0-18.0); Mean Corpuscular Hemoglobin 29.1 pg (25.0-34.0); Mean Corpuscular Hgb Conc 35.3 g/dL (32.0-36.0); Mean Corpuscular Volume 82.3 fL (80.0-100.0); Mean Platelet Volume 10.4 fL (9.4-12.4); Platelet Count 230 K/uL (130-400); RDW Coefficient of Variation 11.2 % (11.5-14.5); RDW Standard Deviation 33.5 fL (36.4-46.3); Red Blood Count 4.75 M/uL (4.70-6.10); White Blood Count 5.35 K/ul (4.8-10.8)
[2024-06-23 07:07] LABS: Albumin Globulin Ratio 1.8 (0.9-2); Albumin Level 4.4 gm/dl (3.4-5.0); Bilirubin,Total 1.2 mg/dl (0.2-1.0); Calcium 9.3 mg/dl (8.6-10.3); Chol HDL Ratio 4.5 (0-5); Creatinine Clr Calc Pharmacy 99.7 ml/min; Est GFR (African American) 94.2 ml/min; Est GFR (Non-African American) 81.3 ml/min; Globulin 2.5 gm/dl (2.5-4.0); Potassium 3.9 mmol/L (3.5-5.1); Total Protein 6.9 gm/dl (6.0-8.3)
[2024-06-23] MEDS: amLODIPine BESYLATE 5 MG TAB PO SCH (08:22)
[2024-06-23] MEDS: ASPIRIN 81 MG ECTAB PO SCH (08:24)
[2024-06-23] MEDS: LOSARTAN POTASSIUM 50 MG TAB PO SCH (08:24)
[2024-06-23] MEDS: PANTOprazole 40 MG TAB PO SCH (08:24)
--- NOTE | 2024-06-23 10:04 | Cardiology Consultation ---
Date of Consultation June 23, 2024 Assessment & Plan (1) Exertional chest pain: No findings to suggest acute coronary syndrome and no rest symptoms. EKG and cardiac enzymes without signs of ischemia. Echocardiogram with preserved LV function Plan Will continue current therapies medically. Refer for coronary CTA post discharge, office contacted to arrange Patient to remain sedentary to evaluation complete Okay for discharge today from cardiac standpoint with return with any worsening symptoms History of Present Illness Reason for Consultation: Chest pain with exertion Requesting Physician: Dr. Randall Attending Physician: Jayne Randall MD History of Present Illness Patient seen and personally examined 48-year-old male with underlying history of hypertension past palpitations and chest pressure pain. Underlying issues include chronic anxiety, gastroesophageal reflux and prior heavy alcohol use now in cessation. Patient presented this admission to the emergency room for evaluation of symptoms of tightness and tingling in the left arm and chest after physical exertion and activity. No rest symptoms. No syncope or near syncope. Possible occasional lightheadedness. No bleeding issues no melena medic easier. Blood pressures have been doing better. Chronic issues with gastroesophageal reflux present. Patient evaluated with normal EKG and cardiac enzymes serially Echocardiogram this morning without wall motion abnormality or valvular disease Stress echocardiogram December 2023 negative for ischemia at 10 METS level workload 9 minutes on a Jeremy protocol This morning no acute complaints. No fevers chills or unexplained infections. No bleeding difficulties. Appetite and weight are stable. Exercises by walking as well as riding e-bike. Feels well while doing activities but symptoms developed shortly after stopping exertion Allergies Allergy/AdvReac Type Severity Reaction Status Date / Time kiwi Allergy Intermediate ITCHY Verified 06/22/24 11:27 THROAT Home Medications Medication Instructions Recorded Confirmed Type epinephrine 0.3 mg/0.3 mL 0.3 mg (0.3 mL) IM Q10M PRN 06/15/21 06/22/24 Rx injection, auto-injector (EpiPen) anaphylaxis #2 ea lorazepam 0.5 mg tablet 0.5 mg PO BID PRN Anxiety 08/13/21 06/22/24 History amlodipine 10 mg tablet 10 mg PO DAILY 06/22/24 06/22/24 History losartan 100 mg tablet 100 mg PO DAILY 06/22/24 06/22/24 History pantoprazole 40 mg tablet,delayed 40 mg PO DAILY 06/22/24 06/22/24 History release Patient History Medical History History of COVID-19 diagnosed 08/2021 (week before )--diagnosed at [facility], fever, loss of smell, body aches, fatigue--no issues now History of kidney stones X1 GERD (gastroesophageal reflux disease) Anxiety Hypertension Surgical History History of esophagogastroduodenoscopy (EGD) History of lipoma REMOVAL History of vasectomy History of tonsillectomy History of cholecystectomy Family History Grandfather (Paternal) Family history of stomach cancer Other No family history of adverse response to anesthesia Social History Smoking Status: Light tobacco smoker Tobacco Type: Cigarettes Cigarettes Per Day: Social smoker; not daily; Second Hand Exposure: No; Do You Dip or Chew Tobacco: No; Hx Alcohol Use: Yes Alcohol type: beer Hx Substance Use: Yes Last Used Substance: Days (ago) Substance Use Type Other:: Rarely uses Preferred Language: Malay Communication Ability: Effective 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 Beliefs That Will Affect Care: None Current Living Situation: Spouse and Family Other Information That Helps Us Care for You: No Feels Safe at Home: Yes Safety Concerns: Feels Safe At This Time Assistive Devices: None Review of Systems Review of Systems: All systems reviewed & are unremarkable except as noted in HPI & below Physical Exam Constitutional: WD/WN, vitals as above Eyes: PERRL, conjunctivae normal, anicteric sclerae ENMT: external ear and nose normal, oropharynx normal Neck: trachea midline, no thyromegaly Respiratory: normal respiratory effort, lungs clear to auscultation Cardiovascular: Rate/Rhythm: regular rate and regular rhythm Heart Sounds: normal S1 and normal S2; no gallop and no murmur Palpation: normal PMI Vessels: normal carotid upstroke and radial pulses present; no JVD and no carotid bruit Extremities: no edema Gastrointestinal (Abdomen): normal bowel sounds, soft, nontender, no hepatosplenomegaly Musculoskeletal: no cyanosis or clubbing, extremities motor strength 5/5 Skin: no rashes, warm and dry Neurologic: PERRL, EOMI, accommodation nl, no face palsy, no dysarthria Psychiatric: A+Ox3, euthymic affect Results & Data Vital Signs (Past 12 Hours) Vital Signs Temp Pulse Pulse Resp BP Pulse Ox O2 Del Method 06/23/24 07:25 36.6 C 58 L 16 126/77 97 Room Air 06/23/24 03:38 36.4 C L 53 L 16 117/73 97 Room Air 06/22/24 23:48 59 L 06/22/24 23:35 36.6 C 57 L 18 124/75 97 Room Air Laboratory Results Laboratory Results - last 24 hr 06/22/24 06/22/24 06/22/24 10:41 12:53 18:28 WBC 5.74 RBC 5.11 Hgb 15.0 Hct 42.2 MCV 82.6 MCH 29.4 MCHC 35.5 RDW Std Deviation 33.5 L RDW Coeff of Charisma 11.3 L Plt Count 278 MPV 10.3 Immature Gran % (Auto) 0.2 Neut % (Auto) 43.4 Lymph % (Auto) 47.0 [place] % (Auto) 6.8 Eos % (Auto) 1.7 Baso % (Auto) 0.9 Neut # (Auto) 2.49 Lymph # (Auto) 2.70 [place] # (Auto) 0.39 Eos # (Auto) 0.10 Baso # (Auto) 0.05 Immature Gran # (Auto) 0.01 PT 11.0 INR 1.0 APTT 27 PTT Ratio 1.0 D-Dimer < 190 Sodium 138 Potassium 3.8 Chloride 103 Carbon Dioxide 27 Anion Gap 8 BUN 13 Creatinine 1.00 Est Cr Clr Drug Dosing 106.7 Est GFR ( Amer) 103.4 Est GFR (Non-Af Amer) 89.2 BUN/Creatinine Ratio 13.0 Glucose 106 H Calcium 9.8 Total Bilirubin 1.4 H AST 12 L ALT 11 Alkaline Phosphatase 39 Troponin I High Sens < 2.3 < 2.3 < 2.3 Total Protein 8.1 Albumin 5.1 H Globulin 3.0 Albumin/Globulin Ratio 1.7 Triglycerides Cholesterol LDL Cholesterol, Calc VLDL Cholesterol, Calc HDL Cholesterol Cholesterol/HDL Ratio 06/23/24 06:27 WBC 5.35 RBC 4.75 Hgb 13.8 L Hct 39.1 L MCV 82.3 MCH 29.1 MCHC 35.3 RDW Std Deviation 33.5 L RDW Coeff of Charisma 11.2 L Plt Count 230 MPV 10.4 Immature Gran % (Auto) Neut % (Auto) Lymph % (Auto) [place] % (Auto) Eos % (Auto) Baso % (Auto) Neut # (Auto) Lymph # (Auto) [place] # (Auto) Eos # (Auto) Baso # (Auto) Immature Gran # (Auto) PT INR APTT PTT Ratio D-Dimer Sodium 139 Potassium 3.9 Chloride 106 Carbon Dioxide 29 Anion Gap 4 BUN 13 Creatinine 1.08 Est Cr Clr Drug Dosing 99.7 Est GFR ( Amer) 94.2 Est GFR (Non-Af Amer) 81.3 BUN/Creatinine Ratio 12.0 Glucose 106 H Calcium 9.3 Total Bilirubin 1.2 H AST 11 L ALT 10 Alkaline Phosphatase 33 L Troponin I High Sens Total Protein 6.9 Albumin 4.4 Globulin 2.5 Albumin/Globulin Ratio 1.8 Triglycerides 108 Cholesterol 140 LDL Cholesterol, Calc 87 VLDL Cholesterol, Calc 22 HDL Cholesterol 31 Cholesterol/HDL Ratio 4.5
--- NOTE | 2024-06-23 10:26 | Discharge Summary ---
Discharge Summary Date of Service June 23, 2024 Principal Dx & Hospital Course #1 = Principal Diagnosis (1) Chest pain: (2) GERD (gastroesophageal reflux disease): (3) Anxiety: Plan Mr. Tse is a 48 year old male with PMH HTN, GERD, anxiety presented to ER with c/o exertional CP on 06/22. Patient with history of such episodes often conflicting with known reflux and anxiety. Troponins remained negative and EKG without acute ST-T changes suggestive of ischemia. ECHO without wall motion abnormality. Patient was evaluated by Cardiology who recommend OP Cardiac CT which will be coordinated by Cardiology On day of discharge, patient remained chest pain free and without any acute concerns. Patient verbalized understanding of plan for follow up with Cardiology. Patient advised to be sedentary until evaluation in order to not provoke onset of symptoms. #Exertional Chest pain Negative troponin x 2 Prior cardiology workup for exertional CP with 01/01/24 stress echo negative for inducible ischemia ECHO with stable EF and no WMA Tele reviewed with no arrhythmia over night Resume home regimen Refer for coronary CTA post discharge, office contacted to arrange Patient to remain sedentary to evaluation complete #Gerd Continue protonix #Anxiety Not on prescription meds.lorazepam to use prn Notes For Next Care Provider Plan for Cardiology Follow up for coronary CTA Medication Changes From Visit None Admission HPI Per Admitting Provider Patient is 48 year old male with PMH HTN, GERD, anxiety presented to ER with c/o CP today. Patient states today was walking briskly and about 1/2 mile in to the walk developed chest pain described as tightness and discomfort. He thought maybe his left arm was a little tingly as well and also reports had indigestion and some nausea. Denies SOB, dizziness, palpitations. He finished walk back to his office and sat down and symptoms continued so came to ER for evaluation. He reports symptoms resolved prior to ER evaluation and denies any recurrence. States one month ago was walking and had chest pain. States after riding e-bike he feels dizzy but denies exertional SOB or CP while bike riding. He reports this has been occurring for months and states has been seen by cardiology for his symptoms. Had followed up with cardiology, Dr. Alberto for exertional chest pain. Had exercise stress echo which was negative for inducible ischemia, however had noted hypertensive during stress test and carvedilol was started. Per chart review last seen in office 02/10/2024 and patient voiced concerns with carvedilol and his alcohol use, so carvedilol was discontinued and amlodipine was increased to 10 mg daily and losartan 100 mg daily was continued. Patient states has not consumed alcohol for the past 7 weeks. Denies fever/chills, diaphoresis, V/D/C, ROTH, dizziness, syncope, vision changes, neck pain, orthopnea, palpitations, cough, sore throat, rhinorrhea, abdominal pain, extremity weakness, extremity edema, rashes, urinary symptoms. Admission Exam Per Admitting Provider General: no distress, WDWN Head: normocephalic, atraumatic Eyes: conjunctiva non-injected, anicteric ENT: normal inspection external ears, nose, mucous membranes moist Neck: supple, trachea midline Lungs: clear, no respiratory distress, no wheezing/rhonchi/rales CV: RRR, no murmur, no pretibial edema, no chest wall tenderness to palpation Abd: normal BS, soft, non-tender Ext: no cyanosis, no calf tenderness Neuro: A&O x 3, no focal deficits noted, normal affect Skin: warm, dry Discharge Exam Constitutional WD/WN, vitals as above Respiratory normal respiratory effort, lungs clear to auscultation Cardiovascular RRR, no murmur, no edema Musculoskeletal no cyanosis or clubbing, extremities motor strength 5/5 Updated Medication List Medication Instructions Recorded Confirmed Type epinephrine 0.3 mg/0.3 mL 0.3 mg (0.3 mL) IM Q10M PRN 06/15/21 06/22/24 Rx injection, auto-injector (EpiPen) anaphylaxis #2 ea lorazepam 0.5 mg tablet 0.5 mg PO BID PRN Anxiety 08/13/21 06/22/24 History amlodipine 10 mg tablet 10 mg PO DAILY 06/22/24 06/22/24 History losartan 100 mg tablet 100 mg PO DAILY 06/22/24 06/22/24 History pantoprazole 40 mg tablet,delayed 40 mg PO DAILY 06/22/24 06/22/24 History release Hospital Stay Data Consultations 06/22/24 14:45 ED Decision to Admit Stat 06/22/24 15:48 Consult Cardiology Routine Diagnostic Imagining Performed ECHO with EF 55-60%, mild LVH, no valvular disease Pending Results Patient Have Any Pending Studies at Discharge: No Discharge Instructions Given to Patient (Per Discharging Provider) You were admitted for chest pain. You were noted to have no signs of active ischemic (heart attack) process. You had no arrhythmias over night. You were evaluated by Cardiology who will coordinate a special image for you to obtain called a cardiac CT. There were no changes to your medications. Total Time Total Time Spent Total Time Spent (In Minutes): 35
--- NOTE | 2024-06-26 05:15 | Electrocardiogram Report ---
Test Reason : Blood Pressure : */* mmHG Vent. Rate : 50 BPM Atrial Rate : 50 BPM P-R Int : 136 ms QRS Dur : 96 ms QT Int : 444 ms P-R-T Axes : 51 20 25 degrees QTcB Int : 404 ms Sinus bradycardia Otherwise normal ECG When compared with ECG of 22-Jun-2024 10:39, No significant change was found Confirmed by Pedro Schultz ([id number]) on 06/26/2024 5:15:24 AM Referred By: REFERRED SELF Confirmed By: Pedro Schultz
== END 2024-06-23 11:24 | disposition home or self-care (01) ==
LOC: 2N 10:28 → ED 10:28 → SUATTDRO 15:04 → 2N 15:56